=== PATIENT | male | born 1950 | race Caucasian/White ===

== ENCOUNTER 2016-10-01 11:50 | Inpatient (IN) | payer OTHER ==
[~2016-10-01] VITALS: Ht 175.3 cm; Wt 81.4 kg
--- NOTE | ~2016-10-01 | EEG ---
[facility] Xiomara [place] [employer] [address] ELECTROENCEPHALOGRAM Name: MARLEN HUBBARD Room #: 403-P [facility] IN M.R.#: [id number] Admission: 10/01/16 Attend Phys: Nely Rodrigues MD Discharge: 10/03/16 Date of : 52 Report #: [id number] THIS REPORT FOR: //name// CC: Daniel Rodrigues DATE OF SERVICE: 10/02/2016 This patient is being evaluated for new onset seizure. EEG was done by placing the electrodes by standard 10-20 system of electrode placement. Both referential and sequential montages were used for recording. Background activity in this patient's EEG is about 9 Hz and 30 microvolts. The patient became drowsy and that is associated with bilaterally symmetrical sleep spindle and vertex sharp waves. Photic stimulation is unremarkable. Throughout the record, no active epileptiform activity was noticed. IMPRESSION: This patient's EEG is within normal limits. Thank you very much for this referral. <ELECTRONICALLY SIGNED> By: Jericho Fernandes MD 10/06/162053 52 21 Jericho Fernandes MD /nt
--- NOTE | ~2016-10-01 | D ---
[facility] [place] [address] DISCHARGE SUMMARY Name: MARLEN HUBBARD Room #: 403-P [facility] IN M.R.#: [id number] Admission: 10/01/16 Attend Phys: Nely Rodrigues MD Discharge: Date of : 51 Report #: [id number] THIS REPORT FOR: //name// CC: Daniel Rodrigues DATE OF SERVICE: 10/03/2016 FINAL DIAGNOSES: 1. Seizure. 2. Multiple sclerosis. 3. Neurogenic bladder 4. Diabetes type 2. HOSPITAL COURSE: [facility] with [facility] status, the Neurology service felt this represented seizure, he was placed on Keppra. He had no other episodes during his stay. Other home medications were continued. He was completing antibiotics for last hospitalization regarding urinary tract infection due to chronic suprapubic catheter. This was not new and was just a continuation of treatment. He had a normal EEG. MRI of the cervical spine revealed syringomyelia, which is chronic and an MRI of the brain revealed white bilateral plaques consistent with his previous diagnosis of MS. No other new plans were made at this time. PHYSICAL EXAMINATION: GENERAL: On the day of discharge, he was awake and alert, in no distress. VITAL SIGNS: Temperature 36.7, pulse 103, respirations 18, blood pressure 157/83. LUNGS: Clear. HEART: Regular. ABDOMEN: Soft. EXTREMITIES: Showed no edema. DISPOSITION: To be returned to [facility]. Activity as tolerated. PT and OT. I will follow his stay there. Medications have been signed and ordered. Tramadol is to be discontinued. <ELECTRONICALLY SIGNED> By: Daniel Jiménez MD 10/03/16 1301 1003 1016 Daniel Jiménez MD /nt
--- NOTE | ~2016-10-01 | EKG ---
[facility] [employer] [place] [address] ELECTROCARDIOGRAM REPORT Name: MARLEN HUBBARD [id number] Admission: 10/01/16 Attend Phys: Discharge: Date of : 52 Report #: [id number] THIS REPORT FOR: //name// [facility] ED Test Date: 2016-10-01 Test Time: 12:14:19 Pat Name: MARLEN HUBBARD Department: Room: Gender: M Manager Applied: FRANK : 1950 Requested By: Debi Noland Order Number: [id number] MD: Benjamin Tomlin Measurements Intervals [place] Rate: 92 P: 47 [place]: 106 QRS: 38 QRSD: 60 T: 51 QT: 401 QTc: 497 Interpretive Statements Sinus rhythm Short LA interval Abnormal R-wave progression, early transition Nonspecific ST and T wave abnormality Compared to ECG 09/19/2016 16:52:00 QT interval has lengthened Electronically Signed On 10-01-2016 14:40:06 REAL ESTATE LOAN PROCESSOR by Benjamin Tomlin [email or web address] <ELECTRONICALLY SIGNED> By: Benjamin Tomlin MD, [facility] 10/01/16 1440 D: [id number] 13 Benjamin Tomlin MD, [facility] /EPI
--- NOTE | ~2016-10-01 | H ---
[facility] [place] [address] HISTORY AND PHYSICAL Name: MARLEN HUBBARD Rusty Room #: 403-P [facility] IN M.R.#: [id number] Admission: 10/01/16 Attend Phys: Nely Rodrigues MD Discharge: 10/03/16 Date of : 52 Report #: [id number] THIS REPORT FOR: //name// CC: Daniel Rodrigues DATE OF SERVICE: 10/01/2016 CHIEF COMPLAINT: Altered mental status. HISTORY OF PRESENT ILLNESS: This patient is a 66-year-old gentleman with multiple medical problems who was sent back to the ER from [facility] for a change in responsiveness. He was apparently on the phone with his daughter when he became unresponsive. Nursing staff found him just kind of leaning over on his wheelchair. He had stable vital signs, but did not come to and his daughter requested that he be sent to the ER. According to EMS reports, he was answering question and appropriately and his blood sugar on arrival was 182. PAST MEDICAL HISTORY: Multiple sclerosis, syringomyelia, depression, dyslipidemia, diabetes type 2, hypertension, neurogenic bladder with a suprapubic catheter, incomplete paraplegia. FAMILY HISTORY: Noncontributory. SOCIAL HISTORY: He has been recuperating at alf after recent UTI. ALLERGIES: PER HIS LIST. MEDICATIONS: Please see the electronic notes. REVIEW OF SYSTEMS: He is denying headache, chest pain, shortness of breath, abdominal pain, nausea, vomiting, diarrhea, constipation, dysuria, or syncope. OBJECTIVE: VITAL SIGNS: Please see vital signs per nursing on 10/02/2016. GENERAL: He was awake and alert and recognized me. LUNGS: Clear. HEART: Regular. ABDOMEN: Soft, normoactive bowel sounds. EXTREMITIES: No edema. ASSESSMENT: 1. Possible procedure. 2. Diabetes type 2. 3. Multiple sclerosis. [facility] [address] [place] [address] HISTORY AND PHYSICAL Name: MARLEN HUBBARD Room #: 403-P [facility] IN M.R.#: [id number] Admission: 10/01/16 Attend Phys: Nely Rodrigues MD Discharge: 10/03/16 Date of : 52 Report #: [id number] Working diagnosis now is seizure. He has been treated as such overnight. The Neurology service will follow him and await their findings. Other home medications to continue. <ELECTRONICALLY SIGNED> By: Daniel Jiménez MD 10/16/16 0945 1517 1544 Daniel Jiménez MD /nt
[2016-10-01 11:50] VITALS: BP 183/68
[~2016-10-01 11:50] MED LIST: ACETAMINOPHEN325 M1 PO; AMOXICILLIN 50500 MG PO; ATORVASTATIN CA40 MG PO; BACTRIM DS TAB1 EACH PO; BISAC-EVAC10 MG RECTAL; CIPRO500 MG PO; CLONAZEPAM; COLACE100 MG PO; ENOXAPARIN40 MG/0.1 SUBQ; FLUCONAZOLE 10100 MG PO; GLIMEPIRIDE1 MG PO; GLUCOSE4 GM PO; HYDROCODON-ACE1 EAC5 PO; HYDROCODONE-AP1 EA11; ICY HOT1 EAC1 TP; IRON325 PO; KEFLEX500 MG PO; KLONOPIN1 MG PO; LANTUS SUBQ; LIDODERM 5%1 PATC1 TRANSDERM; LINZESS290 MCG PO; LIORESAL 10 MG10 MG PO; LIPITOR; LISINOPRIL; LISINOPRIL10 MG PO; METFORMIN; MIRALAX17 GM PO; NEURONTIN 300300 M1; NEURONTIN 300300 M1 PO; NORCO 7.5-3251 EACH PO; NOVOLOG100 UNIT/1 SUBQ; PIOGLITAZONE15 MG PO; POTASSIUM20 PO; PROTONIX40 M1 PO; ZOLOFT100 MG PO
[2016-10-01 12:22] LABS: HEMATOCRIT 31.6 % (42.0-52.0); HEMOGLOBIN 10.6 gm/dL (14.0-18.0); MCH 29.1 pg (26.0-34.0); MCHC 33.4 % (28.0-37.0); MCV 87.3 fL (80.0-100.0); PLATELET COUNT 463 thou/uL (150-400); RBC 3.62 mil/uL (4.50-6.00); RDW 16.4 % (10.5-14.5)
[2016-10-01 12:32] LABS: MANUAL DIFF YES
[2016-10-01] MEDS ORDERED: ZOLOFT50 MG PO (12:33)
[2016-10-01 12:39] LABS: CALCIUM 8.6 mg/dL (8.5-10.1); CREATININE 1.4 mg/dL (0.6-1.3); POTASSIUM 3.8 mmol/L (3.5-5.1)
[2016-10-01 12:45] LABS: URINE BLOOD 2+ (Negative); URINE COLOR YELLOW; URINE GLUCOSE-RANDOM* NEGATIVE (Negative); URINE KETONES NEGATIVE (Negative); URINE NITRITE NEGATIVE (Negative); URINE PROTEIN (DIPSTICK) NEGATIVE (Negative); URINE SPECIFIC GRAVITY >= 1.030 (1.003-1.035); URINE UROBILINOGEN 0.2 E.U./dl (0.2-1.0)
[2016-10-01 12:48] LABS: URINE BILIRUBIN NEGATIVE (Negative)
[2016-10-01 12:49] LABS: SQUAMOUS None Seen /LPF (0-3)
[2016-10-01 12:50] LABS: BACTERIA 1-9 Few /HPF (None Seen); CASTS None Seen /LPF (None Seen); CRYSTALS None Seen /LPF (None Seen); URINE RBC 3-10 Few /HPF (0-2); YEAST Present (None Seen)
[2016-10-01] MEDS ORDERED: KEPPRA 500 MG500 M1 PO (13:04)
[2016-10-01 13:09] LABS: TOTAL CELL COUNT 100
[2016-10-01 16:45] VITALS: BP 103/55
[2016-10-01 17:00] VITALS: BP 139/80
[2016-10-01 20:00] VITALS: BP 138/69
[2016-10-02 03:00] VITALS: BP 121/77
[2016-10-02 05:25] LABS: HEMATOCRIT 27.2 % (42.0-52.0); MCH 28.9 pg (26.0-34.0); MCHC 33.1 % (28.0-37.0); MCV 87.4 fL (80.0-100.0); RBC 3.11 mil/uL (4.50-6.00); RDW 16.9 % (10.5-14.5); WBC 5.9 thou/uL (4.0-11.0)
[2016-10-02 05:48] LABS: CALCIUM 8.3 mg/dL (8.5-10.1); CREATININE 1.2 mg/dL (0.6-1.3); POTASSIUM 3.8 mmol/L (3.5-5.1)
[2016-10-02 08:00] VITALS: BP 158/87
[2016-10-02 16:00] VITALS: BP 130/73
[2016-10-02 20:00] VITALS: BP 126/52
[2016-10-03 04:00] VITALS: BP 163/73
[2016-10-03 06:19] LABS: HEMATOCRIT 28.3 % (42.0-52.0); HEMOGLOBIN 9.4 gm/dL (14.0-18.0); MCH 28.9 pg (26.0-34.0); MCHC 33.1 % (28.0-37.0); MCV 87.6 fL (80.0-100.0); RBC 3.24 mil/uL (4.50-6.00); RDW 17.1 % (10.5-14.5); WBC 7.6 thou/uL (4.0-11.0)
[2016-10-03 06:44] LABS: CALCIUM 8.4 mg/dL (8.5-10.1); CREATININE 1.2 mg/dL (0.6-1.3); POTASSIUM 4.4 mmol/L (3.5-5.1)
[2016-10-03 08:00] VITALS: BP 157/83
[2016-10-03] MEDS ORDERED: BACTRIM DS TAB1 EACH PO (09:58)
[2016-10-03] MEDS ORDERED: FLUCONAZOLE 10100 MG PO (09:58)
[2016-10-03] MEDS ORDERED: KEPPRA 500 MG500 M1 PO (10:00)
[2016-10-03] MEDS ORDERED: COREG3.125 MG PO (10:06)
[2016-10-25] MEDS ORDERED: VALTREX1000 MG PO (15:34)
[2016-11-01] MEDS ORDERED: CARVEDILOL25 MG PO (12:52)
[2016-11-01] MEDS ORDERED: VALTREX 500 MG500 MG PO (12:52)
[2016-11-01] MEDS ORDERED: NEURONTIN 300300 M1 PO (12:53)
[2016-11-01] MEDS ORDERED: VITAMIN D2000 UNIT PO (12:54)
== END 2016-10-03 14:31 | DRG 101 ==
LOC: ER 11:50 → EROBS 14:56 → 4N 14:56
PROVIDERS: Emergency Medicine; Internal Medicine Geriatric Medicine
DX: G40.909 Epilepsy, unspecified, not intractable, without status epilepticus (principal); G95.0 Syringomyelia and syringobulbia; E11.9 Type 2 diabetes mellitus without complications; G35 Multiple sclerosis; F32.9 Major depressive disorder, single episode, unspecified; E78.5 Hyperlipidemia, unspecified; N31.9 Neuromuscular dysfunction of bladder, unspecified; Z87.898 Personal history of other specified conditions; Z87.81 Personal history of (healed) traumatic fracture; Z79.899 Other long term (current) drug therapy; Z23 Encounter for immunization
CPT/HCPCS: 10091

== ENCOUNTER 2017-09-17 14:52 | Inpatient (IN) | payer OTHER ==
[~2017-09-17] VITALS: Ht 175.3 cm; Wt 102.2 kg
--- NOTE | ~2017-09-17 | D ---
[facility] [place] [address] DISCHARGE SUMMARY Name: MARLEN HUBBARD Rusty Room #: 428-P [facility] IN ..#: [id number] Admission: 09/17/17 Attend Phys: Daniel Jiménez MD Discharge: 10/02/17 Date of : 51 Report #: [id number] THIS REPORT FOR: //name// CC: Daniel Jiménez FINAL DIAGNOSES: 1. Acute cholecystitis. 2. Acute cystitis. 3. Altered mental status due to the above. 4. Multiple sclerosis. 5. Diabetes type 2. 6. Acute kidney injury on chronic kidney disease stage 2. 7. Hypertension. 8. Gastritis. : 1. CT abdomen. 2. EGD. 3. Lap dustin. HOSPITAL COURSE: The patient was admitted with altered mental status. Initial diagnosis was cystitis related to chronic suprapubic catheter with organisms growing. He was treated with antibiotics accordingly. However, he continued to complain of abdominal pain with nausea and vomiting. Additional studies were obtained, which showed cholecystitis. EGD was performed showing gastritis, but no ulcer. He refused a colonoscopy. Ultimately, Dr. Rudd took him for a lap dustin. Please see that dictated report. Pathology confirmed acute on chronic cholecystitis. Blood sugars were managed with insulin adjustments and blood pressure was managed with medication adjustments. He was very slow to participate with therapy and spent most of the time asleep in bed. He had no other interval complication. Creatinine stabilized around 1.4 to 1.5. PHYSICAL EXAMINATION ON THE DAY OF DISCHARGE: GENERAL: He was awake, resting in bed, really not eating much. VITAL SIGNS: Blood pressures were 150s/70s. Glucose was in the 120s to 250s. LUNGS: Clear. HEART: Regular. ABDOMEN: Soft, normoactive bowel sounds. A Suprapubic catheter in place. EXTREMITIES: 1+ edema. DISPOSITION: He is being transferred to [facility] nursing unit with diabetic diet, activity as tolerated, PT, and OT. I will follow his stay [facility] [address] [place] [address] DISCHARGE SUMMARY Name: STEVIEMARLEN Room #: [facility] [id number] Admission: 09/17/17 Attend Phys: Daniel Jiménez MD Discharge: 10/02/17 Date of : 51 Report #: [id number] there. I have signed all his transfer medication orders. Follow up lab data in 2 days. <ELECTRONICALLY SIGNED> By: Daniel Jiménez MD 10/04/17 0831 0936 1019 Daniel Jiménez MD /nt
--- NOTE | ~2017-09-17 | S ---
[facility] [employer] [place] [address] SURGICAL PATH RPT PROCEDURE Name: CLAY MAZARIEGOS Room #: 428-P ADM IN M.R.#: [id number] Admission: 09/17/17 Date of : 52 Discharge: Report #: [id number] Path Case #: [id number] PATHOLOGY REPORT COLLECTION DATE: 09/27/2017 RECEIVED DATE: 09/28/2017 SUBMITTING PHYS: Dr. Steven Rudd OTHER PHYS: Dr. Daniel Jiménez SPECIMEN(S) RECEIVED: A.Gallbladder * * * * * * * * * * * * FINAL DIAGNOSIS: "Gallbladder," cholecystectomy: - Mildly acute on chronic cholecystitis. (CLW:mgr; 10/01/2017) PATHOLOGIST: Rosette Mccrary M.D. REPORT ELECTRONICALLY SIGNED BY: Rosette Mccrary M.D. DATE/TIME: 10/01/2017 17:02 * * * * * * * * * * * * GROSS PATHOLOGY: Received in formalin labeled "Clay Mazariegos, gallbladder" and consists of a previously opened gallbladder that measures 7 cm in length by 3 cm in diameter. The serosa is glistening and green. The margin is inked. The wall measures 0.3 cm in maximum thickness. The mucosa is velvety and green. There are no calculi present within the specimen container. Tank Truck Engine Mechanic sections are submitted as A1. (PIETER; 09/28/2017) CLINICAL HISTORY: Cholecystitis INITIAL CPT CODE(S): A; 29764 Professional services performed by [facility] at [facility] [address] [place] [address] Technical services performed by [facility] at [address] [place] [address], [facility] [address], [place] [address]. [facility] [address] [place] [address] SURGICAL PATH RPT PROCEDURE Name: CLAY MAZARIEGOS Room #: 428-P ADM IN M.R.#: [id number] Admission: 09/17/17 Date of : 52 Discharge: Report #: [id number] Path Case #: [id number] [facility] [address] [place] [id number] PHONE: [phone] DIRECTOR: Benedict Wren M.D. * * * END OF REPORT * * *
--- NOTE | ~2017-09-17 | EKG ---
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
--- NOTE | ~2017-09-17 | HC ---
[facility] [place] [address] CONSULTATION Name: MARLEN HUBBARD Room #: 428-P [facility] IN ..#: [id number] Admission: 09/17/17 Attend Phys: Daniel Jiménez MD Discharge: Date of : 51 Report #: [id number] THIS REPORT FOR: //name// CC: Daniel Jiménez DATE OF SERVICE: 09/23/2017 REASON FOR CONSULTATION: Abdominal pain and nausea. The patient with functional disability, suprapubic catheter, recurrent urinary tract infection, admitted with altered mental status here. HISTORY OF PRESENT ILLNESS: The patient is a 67-year-old who does have a lot of medical issues. stated above and also includes diabetes. The patient has been complaining of nausea, abdominal pain for 6 days. This happened around . He was noted to have nausea and altered mental status on . He had a urinary tract infection, which has been recurrent. This grew out Klebsiella and Proteus. Since hospitalization, he has had persistent nausea and he is having pain in the right side. He points to the right lower abdomen. He did have a CT scan on admission and it showed a gallbladder with sludge. No gallbladder inflammation. Appendix is normal, colon has constipation appearance, but no inflammation. Has a hiatal hernia. His liver functions are normal. The patient had an ultrasound yesterday because Dr. Ortiz was concerned that the gallbladder may be an issue. Ultrasound does show stones. They are pretty small. I think they are kind of hard to characterize, could be sludge. There is some echogenic material present. Since this was present on his CT when he came in. I do not think this is due to the current illness, and not just due to n.p.o. I think that this is likely pathological. He has never had any trouble with eating in the past. He eats everything. No postprandial pains that he complains of. PHYSICAL EXAMINATION: GENERAL: The patient is bedridden, has a suprapubic catheter. ABDOMEN: Slightly obese. He does have sensation present. He seems to be tender on the right side is hard to tell if it is more in the upper abdomen versus the lower abdomen on the right. I think he guards more on the upper abdomen. No rigidity or rebound. No ascites. IMPRESSION: The patient is a 67-year-old with abdominal pain and nausea. The pain is on the right side. I suspect that it is gallbladder disease, but it is not acute. The patient does have a lot of medical issues. It is difficult to be sure that the gallbladder is the disease is the offending organ. Dr. Larios impregnator electrolytic capacitors was on the unit, I will go ahead and ask him to see the patient for consultation and see if an EGD would be helpful. I recommend a PIPIDA scan with Kinevac injection. The patient is requiring more pain medication and wants to have IV morphine. I discussed the case with the family. [address] [address] CONSULTATION Name: STEVIEMARLEN Room #: 428-P [facility] IN M.R.#: [id number] Admission: 09/17/17 Attend Phys: Daniel Jiménez MD Discharge: Date of : 51 Report #: [id number] His daughter Solange and ex- were on the phone with listening. They agree with my impression. <ELECTRONICALLY SIGNED> By: Steven Rudd MD 09/24/17 1134 1124 0330 Steven Rudd MD /nt
--- NOTE | ~2017-09-17 | H ---
[facility] [place] [address] HISTORY AND PHYSICAL Name: MARLEN HUBBARD Room #: 428-P [facility] IN ..#: [id number] Admission: 09/17/17 Attend Phys: Daniel Jiménez MD Discharge: Date of : 51 Report #: [id number] THIS REPORT FOR: //name// CC: Daniel Jiménez DATE OF SERVICE: 09/17/2017 CHIEF COMPLAINT: Weakness and confusion. HISTORY OF PRESENT ILLNESS: The patient is a 67-year-old gentleman with multiple medical problems who was brought to the ER by his family with confusion and weakness. They were visiting him and noted altered mental status and called for an ambulance. They said in the past he has had urinary tract infections and sepsis, they have caused similar symptoms. His caregivers reported that in recent days, he was "erratic all day," but history is very limited. I spoke to Dr. Noland the emergency room at the time of his presentation. PAST MEDICAL HISTORY: Multiple sclerosis, diabetes type 2, syringomyelia with functional paraplegia, neurogenic bladder with suprapubic catheter, he has had history of admission for sepsis related to cellulitis and UTI in the past, hypertension, and he has had bilateral distal femur fractures in the past. PAST SURGICAL HISTORY: Unknown. FAMILY HISTORY: Noncontributory. SOCIAL HISTORY: He lives alone. He does have some paid caregivers. There is reported alcohol use in the past, but it is unclear currently. No known tobacco use. ALLERGIES: None. MEDICATIONS: Coreg 25 mg twice a day, vitamin D, Tylenol, lisinopril 10 mg, gabapentin, NovoLog 5 units with meals, Zoloft 150 mg a day, gabapentin 600 mg t.i.d., Levemir 45 units at bedtime, baclofen 10 mg t.i.d., and Colace. REVIEW OF SYSTEMS: He complains of nausea. He has a nonproductive cough. Denies headache, chest pain, shortness of breath, abdominal pain, dysuria, myalgias, arthralgias, syncope, or fall. OBJECTIVE: VITAL SIGNS: Temperature 37.3, pulse 104, respirations 20, blood pressure 191/80, and O2 sat 96% on room air. GENERAL: He is awake and alert, lying in bed. HEAD AND NECK: Unremarkable. LUNGS: Clear. [address] [address] HISTORY AND PHYSICAL Name: MARLEN HUBBARD Room #: 428-P [facility] IN M.R.#: [id number] Admission: 09/17/17 Attend Phys: Daniel Jiménez MD Discharge: Date of : 51 Report #: [id number] HEART: Regular. ABDOMEN: Soft, distended, hypoactive bowel sounds. No rebound or guarding. EXTREMITIES: No cyanosis, clubbing, or edema. NEUROLOGIC: He has rigid contractures of the legs at the knees and hips. LAB DATA: Reviewed. ASSESSMENT: 1. Altered mental status. 2. Nausea and vomiting. 3. Diabetes type 2. 4. Hypertension. 5. Multiple sclerosis. 6. Paraplegia. 7. Neurogenic bladder. 8. Chronic suprapubic catheter. PLAN: I have asked for additional x-rays and for now, continue clear liquids with IV fluid support. His prerenal status with elevated creatinine is related to poor oral intake as it is improved overnight with IV fluids. Empiric antibiotics based on signs of cystitis, although this is likely chronic colonized catheter. Supportive measures in place. <ELECTRONICALLY SIGNED> By: Daniel Jiménez MD 09/18/17 1229 0841 0903 Daniel Jiménez MD /nt
--- NOTE | ~2017-09-17 | EKG ---
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
--- NOTE | ~2017-09-17 | O ---
[facility] [place] [address] OPERATIVE REPORT Name: MARLNE HUBBARD Rusty Room #: 428-P [facility] IN M.R.#: [id number] Admission: 09/17/17 Attend Phys: Daniel Jiménez MD Discharge: 10/02/17 Date of : 51 Report #: [id number] THIS REPORT FOR: //name// CC: Sammy Jiménez MD PREOPERATIVE DIAGNOSIS: Cholecystitis with cholelithiasis, consistent with small stones or sludge. POSTOPERATIVE DIAGNOSIS: Cholecystitis with cholelithiasis, consistent with small stones or sludge. PROCEDURES PERFORMED: Laparoscopic cholecystectomy with cholangiogram. ANESTHESIA: General anesthesia. COMPLICATIONS: None. ESTIMATED BLOOD LOSS: 5 mL. SURGEON: Steven Rudd M.D. DESCRIPTION OF PROCEDURE: With the patient under general anesthesia, abdomen was prepped and draped in sterile fashion. Timeout was performed. The patient did receive 2 grams of Ancef preop. Incision was made just above the umbilicus. The fascia was identified and grasped with hemostat. Fascia was then opened under visualization, 0 Vicryl suture placed on the fascia for retraction. Veress needle was then placed through the peritoneum. Abdominal cavity was insufflated with CO2. After creating pneumoperitoneum pressure of 15, an 11 mm trocar was placed through the fascia defect through the peritoneum into the abdominal cavity. No harm to underlying tissue. The patient has had back issue. The patient's body position was limited. The exposure was good. Two 5 mm trocars were placed in right upper quadrant, a 5 mm trocar was placed in right epigastrium. The patient was placed on the right side up and head up. The gallbladder was identified. The gallbladder did look distended and somewhat edematous. There is a small amount of free fluid sandi-hepatically. It does look like the gallbladder was irritated. There is some chronic adhesion proximally also. The adhesions were taken down. The proximal gallbladder was actually covered by the fatty adhesions. This was dissected free. The cystic duct area was then identified. There is a small branch artery over the cystic duct. This was isolated, clipped x 2 proximally, 1 distally and then divided. Cystic duct was then visualized. The cystic duct is actually a fairly small size. A clip was placed in junction of cystic duct to the gallbladder. An opening was made in the cystic duct. Cholangiogram catheter was placed because of small size. I could only get the tip of the catheter in and this was held with a clip. Fluoroscopic cholangiogram was obtained. Common bile duct did [facility] [address] [place] [address] OPERATIVE REPORT Name: STEVIEMARLEN Room #: 428-P [facility] IN M.R.#: [id number] Admission: 09/17/17 Attend Phys: Daniel Jiménez MD Discharge: 10/02/17 Date of : 51 Report #: [id number] fill out well. Initially, the distal duct filled out. I did not see anything in terms of filling defect and dye flowed readily into the duodenum. After further injection, I was able to see the proximal duct filled out. The cholangiogram catheter identified the cystic duct. There is some dye extravasation at the cannulation site since I could not get a very good seal around it. At this point, the cholangiogram was completed. Catheter was removed. The proximal cystic duct was clipped x 2 and then divided. Further along the liver, the main artery was found. This was clipped x 2 proximally, 1 distally and then divided. The artery can be traced up into the gallbladder. Up on the liver bed, there is a vein that was also clipped and divided. Gallbladder was free from the liver bed without difficulty. Gallbladder was placed in specimen bag, retrieved through the infraumbilical port. The bile was fairly sludgy and also had a cholesterol material floating in the bile. This is more consistent with cholesterol debris and sludge. Liver bed was checked, hemostasis obtained and excellent. Irrigation was aspirated out. CO2 was evacuated as much as possible. Trocars removed. The fascia defect above the umbilicus was closed with [id number] 0 Vicryl x 2 and single interrupted 0 Vicryl in the fascia. Skin was irrigated. Skin was closed with 5-0 PDS. Steri-Strips were applied. Band-Aid used for dressing. The patient tolerated procedure well. <ELECTRONICALLY SIGNED> By: Steven Rudd MD 10/24/17 1513 1722 180 Steven Rudd MD /nt
--- NOTE | ~2017-09-17 | HC ---
[facility] [address] CONSULTATION Name: MARLEN HUBBARD Room #: 428-P [facility] IN ..#: [id number] Admission: 09/17/17 Attend Phys: Daniel Jiménez MD Discharge: Date of : 52 Report #: [id number] THIS REPORT FOR: //name// CC: Daniel Jiménez REASON FOR CONSULTATION: New onset atrial fibrillation. HISTORY OF PRESENT ILLNESS: The patient is a 67-year-old with history of multiple sclerosis, hyperlipidemia and diabetes, admitted on the with altered mental status. Initially diagnosed with possible urinary tract infection as he has a suprapubic catheter, also had some acute renal failure and then eventually was diagnosed with cholecystitis and underwent cholecystectomy. It does not sound like this was full-blown cholecystitis, but there was thought to be pain related to the gallbladder. Therefore, it was removed. He has also undergone an EGD and has been here for optimization of his medical issues. Today at around 1:30, the patient went into rapid atrial fibrillation with rates in the 170s. He denies any chest pain or chest tightness. He denies any shortness of breath. He denies PND or orthopnea. He denies presyncope or syncope. REVIEW OF SYSTEMS: GENERAL: No fevers or chills. HEENT: No blurred vision. CARDIOVASCULAR: As above. PULMONARY: No productive cough. GASTROINTESTINAL: No nausea, no further abdominal pain. GENITOURINARY: No dysuria. MUSCULOSKELETAL: No myalgias or arthralgias. ENDOCRINE: No heat or cold intolerance. NEUROLOGIC: He has chronic lower extremity weakness due to his multiple sclerosis and some spinal cord issues. PAST MEDICAL HISTORY: As above. SOCIAL HISTORY: Does not smoke. FAMILY HISTORY: Noncontributory. ALLERGIES: None. HOME MEDICATIONS: Include insulin, melatonin, nystatin, sertraline, gabapentin, baclofen, Colace. His meds here have been reviewed. PHYSICAL EXAMINATION: VITAL SIGNS: Temperature 36.1, pulse 170s, respiration 20, blood pressure is 130s/70s, sats 90%-95%. HEENT: Oropharynx is clear. [facility] [address] [place] [address] CONSULTATION Name: MARLEN HUBBARD Room #: 428-P [facility] IN ..#: [id number] Admission: 09/17/17 Attend Phys: Daniel Jiménez MD Discharge: Date of : 51 Report #: [id number] NECK: Supple, with no thyromegaly. HEART: Tachycardic and irregular. There is no elevated jugular venous pressure. LUNGS: Clear to auscultation bilaterally. ABDOMEN: Soft, nontender, nondistended. EXTREMITIES: There is some trace lower extremity edema and his pulses are 1-2+. NEUROLOGICAL: Cranial nerves are intact. LABORATORY DATA: White count is 7, hemoglobin 9, platelets 247. Blood gas: 7.3, pCO2 32, pO2 70. Chemistries from yesterday revealed potassium 3.3, BUN 11, creatinine 1.4, glucose 168. Telemetry shows the atrial fibrillation. Troponins and EKG are pending. ASSESSMENT: 1. New onset atrial fibrillation with rapid ventricular response. 2. Multiple sclerosis. 3. Hyperlipidemia. 4. Diabetes mellitus. 5. Cholecystitis. PLAN: In summary, the patient is a 67-year-old with new onset AFib. We will initiate IV amiodarone and gave a few doses of IV digoxin. We will attempt to get his rates controlled in the CCU. We will obtain an echocardiogram in the morning. We will obtain a troponin now and in the a.m. <ELECTRONICALLY SIGNED> By: Efren Stout MD 10/01/17 1307 1356 2218 Efren Stout MD /nt
--- NOTE | ~2017-09-17 | S ---
[facility] [place] [address] SURGICAL PATH RPT PROCEDURE Name: CLAY MAZARIEGOS Rusty Room #: 428-P ADM IN M.R.#: [id number] Admission: 09/17/17 Date of : 52 Discharge: Report #: [id number] Path Case #: [id number] PATHOLOGY REPORT COLLECTION DATE: 09/25/2017 RECEIVED DATE: 09/25/2017 SUBMITTING PHYS: Dr. Geoffrey Larios OTHER PHYS: Dr. Daniel Jiménez SPECIMEN(S) RECEIVED: A.Bx of small bowel for Celiac B.Bx of antrum for H. pylori * * * * * * * * * * * * FINAL DIAGNOSIS: A. Bx of small bowel for Celiac: - Unremarkable small bowel mucosa with intact villous architecture and no increase in intraepithelial lymphocytes. B. Bx of antrum for H. pylori: - Mild chronic inactive gastritis with reactive change. - An H. pylori immunostain is negative (Block B1; appropriately reactive control). PATHOLOGIST: Sudarshan Carter M.D. REPORT ELECTRONICALLY SIGNED BY: Sudarshan Carter M.D. DATE/TIME: 09/26/2017 11:13 * * * * * * * * * * * * GROSS PATHOLOGY: A. Received in formalin labeled "Clay Mazariegos, BX of small bowel for celiac," are 2 segments of mendez soft tissue measuring 0.7 x 0.2 x 0.2 cm in aggregate dimensions and ranging from 0.3 to 0.4 cm in maximum dimension. The specimen is submitted entirely in cassette A1. B. Received in formalin labeled "Clay Mazariegos, BX antrum for H. pylori," are 2 segments of mendez soft tissue measuring 0.8 x 0.3 x 0.2 cm in aggregate dimensions and ranging from 0.3 to 0.5 cm in maximum dimension. The specimen is submitted entirely in cassette B1. (TSD; 09/25/2017) CLINICAL HISTORY: Pre-OP DX: Abdominal pain Post-OP DX: Gastritis, esophagitis INITIAL CPT CODE(S): A; [address] [address] SURGICAL PATH RPT PROCEDURE Name: CLAY MAZARIEGOS Room #: 428-P [facility] IN M.R.#: [id number] Admission: 09/17/17 Date of : 52 Discharge: Report #: [id number] Path Case #: [id number]; [id number], [id number] Professional services performed by [facility] at [address], [place] [address] Technical services performed by [facility] at [address] [place] [address], [facility] [address] [address]. [facility] [address] [address] PHONE: [phone] DIRECTOR: Benedict Wren M.D. * * * END OF REPORT * * *
[~2017-09-17 14:52] MED LIST changes: +CARVEDILOL25 MG PO; +COREG3.125 MG PO; +KEPPRA 500 MG500 M1 PO; +VALTREX 500 MG500 MG PO; +VALTREX1000 MG PO; +VITAMIN D2000 UNIT PO; +ZOLOFT50 MG PO
[2017-09-17 14:53] VITALS: BP 178/81
[2017-09-17 15:18] LABS: URINE BILIRUBIN NEGATIVE (Negative); URINE BLOOD 1+ (Negative); URINE CLARITY SL CLOUDY; URINE COLOR YELLOW; URINE GLUCOSE-RANDOM* NEGATIVE (Negative); URINE KETONES NEGATIVE (Negative); URINE LEUKOCYTES 3+ (Negative); URINE NITRITE POSITIVE (Negative); URINE PROTEIN (DIPSTICK) NEGATIVE (Negative); URINE SPECIFIC GRAVITY 1.015 (1.005-1.035); URINE UROBILINOGEN 0.2 E.U./dl (0.2-1.0)
[2017-09-17 15:20] LABS: HEMATOCRIT 37.6 % (42.0-52.0); MCH 24.5 pg (26.0-34.0); MCV 76.6 fL (80.0-100.0); PLATELET COUNT 310 thou/uL (150-400); RBC 4.91 mil/uL (4.50-6.00); RDW 18.4 % (10.5-14.5); WBC 5.3 thou/uL (4.0-11.0)
[2017-09-17 15:24] LABS: TRIPLE PHOSPHATE CRYSTALS 4-10 Moderate /LPF (None Seen)
[2017-09-17 15:25] LABS: BACTERIA >30 Many /HPF (None Seen); SQUAMOUS 0-3 Few /LPF (0-3); URINE RBC 3-10 Few /HPF (0-2); URINE WBC >25 Many /HPF (0-5)
[2017-09-17 15:26] LABS: ANION GAP 5 mmol/L (7-16); BUN 25 mg/dL (7-18); CALCIUM 9.3 mg/dL (8.5-10.1); CASTS None Seen /LPF (None Seen); CHLORIDE 108 mmol/L (98-107); CO2 30 mmol/L (21-32); CREATININE 1.7 mg/dL (0.7-1.3); GLUCOSE 180 mg/dL (74-106); POTASSIUM 5.2 mmol/L (3.5-5.1); SODIUM 143 mmol/L (136-145)
[2017-09-17 15:32] LABS: ALBUMIN 3.2 g/dL (3.4-5.0); DIRECT BILIRUBIN < 0.1 mg/dL (<0.1-0.3); LIPASE 50 U/L (73-393); SGOT 17 U/L (15-37); SGPT 21 U/L (30-65); TOTAL BILIRUBIN 0.2 mg/dL (<0.1-1.0); TOTAL PROTEIN 7.3 g/dL (6.4-8.2)
[2017-09-17 15:52] LABS: ABSOLUTE NEUTROPHILS 3.4 thou/uL (1.4-8.2)
[2017-09-17 15:53] LABS: ANISOCYTOSIS 1+; POIKILOCYTOSIS SLIGHT; POLYCHROMASIA OCCASIONAL
[2017-09-17] MEDS ORDERED: NYATA15 GM TOP (16:55)
[2017-09-17] MEDS ORDERED: MELATONIN5 M1 PO (16:55)
[2017-09-17] MEDS ORDERED: SERTRALINE HCL50 MG PO (16:56)
[2017-09-17] MEDS ORDERED: SENNA-S TABLET1 EACH PO (16:56)
[2017-09-17] MEDS ORDERED: TRIAMCINOLONE A80 G2 TOP (16:57)
[2017-09-17] MEDS ORDERED: NEURONTIN 300300 M1 PO (16:57)
[2017-09-17] MEDS ORDERED: LEVEMIR SUBQ (16:58)
[2017-09-17] MEDS ORDERED: COLACE100 MG PO (16:58)
[2017-09-17] MEDS ORDERED: TYLENOL EXTRA500 MG PO (16:58)
[2017-09-17] MEDS ORDERED: LIORESAL 10 MG10 MG PO (16:58)
[2017-09-17] MEDS ORDERED: FLEET ENEMA133 ML RECTAL (16:59)
[2017-09-17 17:21] VITALS: BP 178/81
[2017-09-17 17:40] VITALS: BP 134/61
[2017-09-18 04:16] VITALS: BP 184/122
[2017-09-18 05:51] VITALS: BP 191/80
[2017-09-18 07:52] LABS: HEMATOCRIT 38.3 % (42.0-52.0); MCH 23.9 pg (26.0-34.0); MCHC 31.3 g/dL (28.0-37.0); MCV 76.4 fL (80.0-100.0); RBC 5.02 mil/uL (4.50-6.00); RDW 18.6 % (10.5-14.5); WBC 7.4 thou/uL (4.0-11.0)
[2017-09-18 08:01] LABS: CALCIUM 8.9 mg/dL (8.5-10.1); CREATININE 1.4 mg/dL (0.7-1.3); POTASSIUM 4.4 mmol/L (3.5-5.1)
[2017-09-18 08:43] VITALS: BP 185/88
[2017-09-18 16:42] VITALS: BP 187/91
[2017-09-18 20:08] VITALS: BP 163/82
[2017-09-18 23:43] VITALS: BP 183/83
[2017-09-19 03:29] VITALS: BP 181/90
[2017-09-19 05:39] LABS: HEMATOCRIT 36.3 % (42.0-52.0); HEMOGLOBIN 11.4 gm/dL (14.0-18.0); MCH 24.1 pg (26.0-34.0); MCHC 31.4 g/dL (28.0-37.0); MCV 76.7 fL (80.0-100.0); RBC 4.74 mil/uL (4.50-6.00); RDW 18.8 % (10.5-14.5)
[2017-09-19 05:44] VITALS: BP 181/87
[2017-09-19 05:50] LABS: CREATININE 1.2 mg/dL (0.7-1.3); POTASSIUM 4.3 mmol/L (3.5-5.1)
[2017-09-19 07:40] VITALS: BP 185/75
[2017-09-19 10:13] LABS: BE(vivo) -10.7 mmol/L (-2 to +3); HCO3 13.4 mmol/L (22.0-26.0); PCO2 25.4 mmHg (35.0-45.0); PO2 78.7 mmHg (80.0-100.0); sO2 95.3 % (92.0-98.0)
[2017-09-19 14:50] VITALS: BP 148/72
[2017-09-19 19:37] VITALS: BP 156/66
[2017-09-20 04:58] VITALS: BP 141/61
[2017-09-20 08:00] VITALS: BP 146/63
[2017-09-20 15:57] VITALS: BP 115/56
[2017-09-20 20:13] VITALS: BP 144/62
[2017-09-21 05:04] VITALS: BP 148/67
[2017-09-21 06:15] LABS: HEMATOCRIT 33.8 % (42.0-52.0); HEMOGLOBIN 10.8 gm/dL (14.0-18.0); MCH 24.5 pg (26.0-34.0); MCHC 32.1 g/dL (28.0-37.0); MCV 76.5 fL (80.0-100.0); RBC 4.42 mil/uL (4.50-6.00); RDW 18.5 % (10.5-14.5); WBC 12.8 thou/uL (4.0-11.0)
[2017-09-21 06:29] LABS: CALCIUM 8.6 mg/dL (8.5-10.1); CREATININE 1.7 mg/dL (0.7-1.3); POTASSIUM 3.8 mmol/L (3.5-5.1)
[2017-09-21 07:50] VITALS: BP 159/70
[2017-09-21 15:40] VITALS: BP 154/65
[2017-09-21 19:17] VITALS: BP 157/73
[2017-09-22 04:04] VITALS: BP 148/72
[2017-09-22 07:48] LABS: HEMATOCRIT 36.6 % (42.0-52.0); HEMOGLOBIN 11.7 gm/dL (14.0-18.0); MCH 24.1 pg (26.0-34.0); MCHC 31.9 g/dL (28.0-37.0); MCV 75.6 fL (80.0-100.0); RBC 4.84 mil/uL (4.50-6.00); RDW 18.6 % (10.5-14.5); WBC 9.2 thou/uL (4.0-11.0)
[2017-09-22 07:55] LABS: CREATININE 1.2 mg/dL (0.7-1.3); POTASSIUM 3.5 mmol/L (3.5-5.1)
[2017-09-22 08:00] VITALS: BP 167/81
[2017-09-22 11:57] VITALS: BP 172/86
[2017-09-22 16:00] VITALS: BP 187/76
[2017-09-22 20:00] VITALS: BP 152/80
[2017-09-23 04:08] VITALS: BP 156/86
[2017-09-23 08:45] VITALS: BP 168/89
[2017-09-23 16:05] VITALS: BP 182/93
[2017-09-23 20:09] VITALS: BP 95/54
[2017-09-24 00:12] VITALS: BP 174/88
[2017-09-24 03:25] VITALS: BP 185/88
[2017-09-24 04:44] LABS: CALCIUM 8.6 mg/dL (8.5-10.1); CREATININE 1.1 mg/dL (0.7-1.3); POTASSIUM 3.9 mmol/L (3.5-5.1)
[2017-09-24 08:45] VITALS: BP 185/88
[2017-09-24 19:21] VITALS: BP 158/74
[2017-09-25 05:58] VITALS: BP 168/69
[2017-09-25 09:42] VITALS: BP 174/82
[2017-09-25 11:11] LABS: HEMATOCRIT 36.1 % (42.0-52.0); HEMOGLOBIN 11.4 gm/dL (14.0-18.0); MCH 24.7 pg (26.0-34.0); MCHC 31.6 g/dL (28.0-37.0); MCV 78.3 fL (80.0-100.0); RBC 4.61 mil/uL (4.50-6.00); RDW 18.7 % (10.5-14.5); WBC 5.3 thou/uL (4.0-11.0)
[2017-09-25 11:29] LABS: ALBUMIN 2.4 g/dL (3.4-5.0); CALCIUM 8.6 mg/dL (8.5-10.1); CREATININE 1.1 mg/dL (0.7-1.3); POTASSIUM 3.4 mmol/L (3.5-5.1); TOTAL BILIRUBIN 0.3 mg/dL (<0.1-1.0); TOTAL PROTEIN 6.2 g/dL (6.4-8.2)
[2017-09-25 14:13] LABS: BE(vivo) -6.3 mmol/L (-2 to +3); HCO3 18.2 mmol/L (22.0-26.0); PCO2 32.6 mmHg (35.0-45.0); PO2 70.4 mmHg (80.0-100.0); pH 7.364 (7.360-7.450); sO2 93.8 % (92.0-98.0)
[2017-09-25 16:00] VITALS: BP 173/71
[2017-09-25 19:39] VITALS: BP 153/64
[2017-09-26 04:07] VITALS: BP 166/75
[2017-09-26 06:33] LABS: CALCIUM 8.4 mg/dL (8.5-10.1); CREATININE 1.2 mg/dL (0.7-1.3); POTASSIUM 3.5 mmol/L (3.5-5.1)
[2017-09-26 07:20] VITALS: BP 169/81
[2017-09-26 15:28] VITALS: BP 195/94
[2017-09-26 20:54] VITALS: BP 138/70
[2017-09-27 04:28] VITALS: BP 156/68
[2017-09-27 06:39] LABS: HEMATOCRIT 34.8 % (42.0-52.0); HEMOGLOBIN 11.4 gm/dL (14.0-18.0); MCH 24.8 pg (26.0-34.0); MCHC 32.7 g/dL (28.0-37.0); MCV 75.8 fL (80.0-100.0); RBC 4.59 mil/uL (4.50-6.00); RDW 18.1 % (10.5-14.5); WBC 8.9 thou/uL (4.0-11.0)
[2017-09-27 06:53] LABS: CALCIUM 8.5 mg/dL (8.5-10.1); CREATININE 1.3 mg/dL (0.7-1.3); POTASSIUM 3.3 mmol/L (3.5-5.1)
[2017-09-27 08:27] VITALS: BP 157/69
[2017-09-27 17:30] VITALS: BP 116/55
[2017-09-27 18:34] VITALS: BP 121/84
[2017-09-27 19:21] VITALS: BP 165/88
[2017-09-28 03:45] VITALS: BP 131/50
[2017-09-28 06:03] LABS: MCH 24.9 pg (26.0-34.0); MCHC 31.4 g/dL (28.0-37.0); MCV 79.4 fL (80.0-100.0); RBC 4.41 mil/uL (4.50-6.00); RDW 18.7 % (10.5-14.5); WBC 8.5 thou/uL (4.0-11.0)
[2017-09-28 06:19] LABS: CALCIUM 7.9 mg/dL (8.5-10.1); CREATININE 1.5 mg/dL (0.7-1.3); POTASSIUM 3.1 mmol/L (3.5-5.1)
[2017-09-28 08:50] VITALS: BP 133/58
[2017-09-28 15:50] VITALS: BP 144/57
[2017-09-28 20:00] VITALS: BP 114/56
[2017-09-29 04:30] VITALS: BP 95/62
[2017-09-29 06:11] LABS: HEMATOCRIT 28.6 % (42.0-52.0); HEMOGLOBIN 9.1 gm/dL (14.0-18.0); MCH 24.6 pg (26.0-34.0); MCHC 31.8 g/dL (28.0-37.0); MCV 77.3 fL (80.0-100.0); RBC 3.7 mil/uL (4.50-6.00); RDW 19.2 % (10.5-14.5)
[2017-09-29 06:29] LABS: CALCIUM 7.8 mg/dL (8.5-10.1); CREATININE 1.4 mg/dL (0.7-1.3); POTASSIUM 3.3 mmol/L (3.5-5.1)
[2017-09-29 07:24] VITALS: BP 125/59
[2017-09-29 16:58] VITALS: BP 126/59
[2017-09-29 19:25] VITALS: BP 129/55
[2017-09-30 05:16] VITALS: BP 171/82
[2017-09-30 08:00] VITALS: BP 168/82
[2017-09-30 13:15] VITALS: BP 136/73
[2017-10-01 04:30] VITALS: BP 151/80
[2017-10-01 06:32] LABS: HEMATOCRIT 31.7 % (42.0-52.0); HEMOGLOBIN 10.3 gm/dL (14.0-18.0); MCH 25.1 pg (26.0-34.0); MCHC 32.6 g/dL (28.0-37.0); RBC 4.11 mil/uL (4.50-6.00); RDW 19.5 % (10.5-14.5); WBC 8.9 thou/uL (4.0-11.0)
[2017-10-01 06:47] LABS: CALCIUM 8.1 mg/dL (8.5-10.1); CREATININE 1.5 mg/dL (0.7-1.3); POTASSIUM 3.6 mmol/L (3.5-5.1)
[2017-10-01 08:30] VITALS: BP 153/69
[2017-10-01 15:45] VITALS: BP 139/65
[2017-10-01 20:38] VITALS: BP 138/65
[2017-10-02 04:14] VITALS: BP 144/73
[2017-10-02 07:14] LABS: CALCIUM 8.2 mg/dL (8.5-10.1); CREATININE 1.4 mg/dL (0.7-1.3); POTASSIUM 3.5 mmol/L (3.5-5.1)
[2017-10-02 08:00] VITALS: BP 150/72
[2017-10-02] MEDS ORDERED: ENOXAPARIN40 MG/0.1 SUBQ (09:29)
[2017-10-02] MEDS ORDERED: LISINOPRIL20 MG PO (09:29)
[2017-10-02] MEDS ORDERED: AMLODIPINE BESY10 MG PO (09:29)
[2017-10-02 09:30] VITALS: BP 250/72
[2017-10-02] MEDS ORDERED: ACETAMINOPHEN325 M1 PO (09:30)
[2017-10-02] MEDS ORDERED: LACTULOSE20 GM/30 M PO (09:30)
[2017-10-02] MEDS ORDERED: BISAC-EVAC10 MG RECTAL (09:30)
[2017-10-02] MEDS ORDERED: HYDROCODON-ACE1 EAC7 PO (09:30)
[2017-10-02] MEDS ORDERED: PANTOPRAZOLE SO40 M1 PO (09:31)
[2017-10-02] MEDS ORDERED: LEVEMIR SUBQ (09:31)
[2017-10-02] MEDS ORDERED: NOVOLOG100 UNIT/1 SUBQ (09:31)
== END 2017-10-02 13:52 | DRG 417 ==
LOC: ER 14:52 → 4E 16:36 → EROBS 16:36 → 4E 17:41 → 2N 09-30 14:38 → 4E 09-30 15:40
PROVIDERS: Emergency Medicine; Internal Medicine; Internal Medicine Geriatric Medicine; Surgery
DX: K80.00 Calculus of gallbladder with acute cholecystitis without obstruction (principal); N17.0 Acute kidney failure with tubular necrosis; G93.41 Metabolic encephalopathy; G82.20 Paraplegia, unspecified; N30.00 Acute cystitis without hematuria; F32.9 Major depressive disorder, single episode, unspecified; E78.5 Hyperlipidemia, unspecified; I48.91 Unspecified atrial fibrillation; G35 Multiple sclerosis; K29.70 Gastritis, unspecified, without bleeding; K20.9 Esophagitis, unspecified; K44.9 Diaphragmatic hernia without obstruction or gangrene; N18.2 Chronic kidney disease, stage 2 (mild); E11.22 Type 2 diabetes mellitus with diabetic chronic kidney disease; I12.9 Hypertensive chronic kidney disease with stage 1 through stage 4 chronic kidney disease, or unspecified chronic kidney disease; Z60.2 Problems related to living alone; N31.9 Neuromuscular dysfunction of bladder, unspecified; Z84.89 Family history of other specified conditions; Z87.81 Personal history of (healed) traumatic fracture; Z79.899 Other long term (current) drug therapy
CPT/HCPCS: 10084; 10783; 50010; 50101; 50411; 50555; 50558; 51489; 53307; 53310; 53312; 55245; 55317; 56462; 56525; 56526; 62110; 62900; 70005

== ENCOUNTER → 2018-02-27 | Outpatient (CLI) | payer OTHER ==
[~2018-02-27] MED LIST changes: +AMLODIPINE BESY10 MG PO; +FLEET ENEMA133 ML RECTAL; +HYDROCODON-ACE1 EAC7 PO; +LACTULOSE20 GM/30 M PO; +LEVEMIR SUBQ; +LISINOPRIL20 MG PO; +MELATONIN5 M1 PO; +NYATA15 GM TOP; +PANTOPRAZOLE SO40 M1 PO; +SENNA-S TABLET1 EACH PO; +SERTRALINE HCL50 MG PO; +TRIAMCINOLONE A80 G2 TOP; +TYLENOL EXTRA500 MG PO
== END ==
LOC: HYPER 02-11 13:08
DX: E11.622 Type 2 diabetes mellitus with other skin ulcer (principal); L89.153 Pressure ulcer of sacral region, stage 3; L89.893 Pressure ulcer of other site, stage 3; L97.111 Non-pressure chronic ulcer of right thigh limited to breakdown of skin; L98.491 Non-pressure chronic ulcer of skin of other sites limited to breakdown of skin; G35 Multiple sclerosis; G82.20 Paraplegia, unspecified; I10 Essential (primary) hypertension; Z79.4 Long term (current) use of insulin; Z89.9 Acquired absence of limb, unspecified

== ENCOUNTER 2018-10-06 14:20 | Inpatient (IN) | payer OTHER ==
[~2018-10-06] VITALS: Ht 175.3 cm; Wt 93.0 kg
[2018-10-06 14:21] VITALS: BP 146/69
[2018-10-06] MEDS ORDERED: LEVEMIR SUBQ (14:58)
[2018-10-06] MEDS ORDERED: LACTULOSE20 GM/30 M PO (15:00)
[2018-10-06] MEDS ORDERED: NOVOLOG100 UNIT/1 SUBQ (15:01)
[2018-10-06] MEDS ORDERED: LISINOPRIL10 MG PO (15:02)
[2018-10-06] MEDS ORDERED: OMEPRAZOLE 20 M20 M1 PO (15:05)
[2018-10-06] MEDS ORDERED: KEFLEX250 MG PO (15:05)
[2018-10-06] MEDS ORDERED: NEURONTIN 300300 M1 PO (15:06)
[2018-10-06] MEDS ORDERED: TRIAMCINOLONE A80 G2 TOP (15:08)
[2018-10-06 15:36] LABS: ABSOLUTE NEUTROPHILS 4.9 thou/uL (1.4-8.2); EOSINOPHILS 4.4 % (0.0-3.0); HEMATOCRIT 39.7 % (42.0-52.0); LYMPHOCYTES 12.7 % (24.0-44.0); MCH 27.2 pg (26.0-34.0); MCHC 32.8 g/dL (28.0-37.0); MONOCYTES 7.1 % (1.0-8.0); PLATELET COUNT 321 thou/uL (150-400); POLYS 74.8 % (36.0-66.0); RBC 4.78 mil/uL (4.50-6.00); RDW 16.6 % (10.5-14.5); WBC 6.5 thou/uL (4.0-11.0)
[2018-10-06 15:44] LABS: CALCIUM 9.4 mg/dL (8.5-10.1); CREATININE 1.5 mg/dL (0.7-1.3)
[2018-10-06 15:50] LABS: ALBUMIN 3.4 g/dL (3.4-5.0); TOTAL BILIRUBIN 0.4 mg/dL (<0.1-1.0); TOTAL PROTEIN 7.9 g/dL (6.4-8.2)
[2018-10-06 19:08] VITALS: BP 150/88
--- NOTE | 2018-10-06 19:26 | NUR ---
SPOKE WITH EX- NOHEMI KWONG, CURRENT CONSERVATOR. [phone]. STATES PATIENT HAS HAD ADDICTION ISSUES IN THE PAST AND NOT TO GIVE HIM PAIN MEDICATIONS. WILL PASS ALONG TO PHYSICIAN.
[2018-10-06 20:00] VITALS: BP 139/59
[2018-10-06 20:35] VITALS: BP 127/48
--- NOTE | 2018-10-06 22:12 | EKG ---
[address] [address] ELECTROCARDIOGRAM REPORT Name: MARLEN HUBBARD Room #: 458-P ADM IN M.R.#: [id number] Admission: 10/06/18 Attend Phys: Mechelle Orosco Discharge: Date of : 51 Report #: [id number] THIS REPORT FOR: //name// [facility] ED Test Date: 2018-10-06 Test Time: 16:01:01 Pat Name: MARLEN HUBBARD Department: Room: 458 Gender: M Test Driller: suresh : 1950 Requested By: Mandy Sharp Order Number: [id number] MD: Efren Stout Measurements Intervals [place] Rate: 66 P: 36 GA: 130 QRS: 10 QRSD: 84 T: 31 QT: 378 QTc: 396 Interpretive Statements Sinus rhythm Low voltage, precordial leads Compared to ECG 10/25/2016 14:05:00 Low QRS voltage now present Electronically Signed On 10-06-2018 22:12:30 CARDIAC NURSE PRACTITIONER by Efren Stout [email or web address] <ELECTRONICALLY SIGNED> By: Efren Stout MD 10/06/18 2212 00 00 Efren Stout MD /SAYDA
[2018-10-07 04:00] VITALS: BP 143/68
[2018-10-07 08:19] VITALS: BP 129/48
[2018-10-07 10:14] LABS: CALCIUM 8.6 mg/dL (8.5-10.1); CREATININE 1.5 mg/dL (0.7-1.3); POTASSIUM 5.6 mmol/L (3.5-5.1)
--- NOTE | 2018-10-07 11:54 | NUR ---
TOWARDS POC PT A/O X4, VSS, AFEBRILE. CHRONIC PAIN NOTED, MANAGED BY MEDS. NO CONCERNS VOICED AT THIS TIME WILL CONTINUE TO MONITOR.
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
[2018-10-07 17:01] VITALS: BP 138/69
[2018-10-07 19:49] VITALS: BP 91/47
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
[2018-10-08 04:35] VITALS: BP 144/61
[2018-10-08 06:17] LABS: CALCIUM 8.9 mg/dL (8.5-10.1); CREATININE 1.4 mg/dL (0.7-1.3); POTASSIUM 4.7 mmol/L (3.5-5.1)
[2018-10-08 07:50] VITALS: BP 143/70
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
--- NOTE | 2018-10-08 11:34 | NUR ---
TOWARDS POC PT A/O X4, VSS, AFEBRILE. PAIN MANAGED BY MEDS. SUPRAPUBIC CATH INTACT, DRAINING WELL. NO CONCERNS VOICED AT THIS TIME. WILL CONTINUE TO MONITOR.
[2018-10-08 13:50] VITALS: BP 143/70
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
== END 2018-10-08 17:38 | disposition home health service (06) | DRG 683 ==
LOC: ER 14:20 → 4W 16:17 → EROBS 16:17 → 4W 20:23
PROVIDERS: Internal Medicine Geriatric Medicine; Physician Assistant; ADMIT Internal Medicine
DX: N17.9 Acute kidney failure, unspecified (principal); G82.20 Paraplegia, unspecified; I12.9 Hypertensive chronic kidney disease with stage 1 through stage 4 chronic kidney disease, or unspecified chronic kidney disease; E87.5 Hyperkalemia; N18.3 Chronic kidney disease, stage 3 (moderate); F32.9 Major depressive disorder, single episode, unspecified; E66.9 Obesity, unspecified; E11.22 Type 2 diabetes mellitus with diabetic chronic kidney disease; G35 Multiple sclerosis; N31.9 Neuromuscular dysfunction of bladder, unspecified; E78.5 Hyperlipidemia, unspecified; Z90.49 Acquired absence of other specified parts of digestive tract; Z87.81 Personal history of (healed) traumatic fracture; Z68.30 Body mass index [BMI] 30.0-30.9, adult; Z79.4 Long term (current) use of insulin; Z79.899 Other long term (current) drug therapy; X31.XXXA Exposure to excessive natural cold, initial encounter
CPT/HCPCS: 10040

== ENCOUNTER 2019-03-12 14:55 | Inpatient (IN) | payer OTHER ==
[~2019-03-12] VITALS: Ht 175.3 cm; Wt 94.8 kg
--- NOTE | ~2019-03-12 | HC ---
[facility] [place] [address] CONSULTATION Name: MARLEN HUBBARD Rusty Room #: 245-[facility] IN M.R.#: [id number] Admission: 03/12/19 ������������������ Attend Phys: Nely Rodrigues MD Discharge: ������������������ Date of : 51 Report #: [id number] THIS REPORT FOR: //name// CC: Daniel Rodrigues PALLIATIVE CARE CONSULTATION REQUESTING PHYSICIAN: Dr. Daniel Jiménez. CHIEF COMPLAINT: Acute hypoxic respiratory failure. HISTORY OF PRESENT ILLNESS: The patient is a 68-year-old male, who presented initially to [facility] on 03/12. The patient had presented with history of MS, quadriparesis secondary to this. He presented additionally with hypoxic respiratory failure. He has a history of being wheelchair bound and bedbound. Other than that, he had had a fall recently with broken right hip. There was a plan to do surgery, but he developed again worsening symptoms, found to have sepsis likely secondary to pneumonia and possible urinary tract infection again causing him to have hypoxic respiratory failure. The patient subsequently has had delirium, decreased responsiveness, required BiPAP, has not had improvement in his overall condition and has developed acute renal failure. Unfortunately, at this time, the patient appears to have a poor overall prognosis and I have been consulted secondary to this. I cannot obtain information from the patient. I did discuss with his ex- and daughter, Lavern, who both state that the patient would desire to have no additional measures including intubation and confirmed his DNR status at this time. PAST MEDICAL HISTORY: Multiple sclerosis with quadriparesis, syringomyelia, wheelchair bound, history of recurrent falls, type 2 diabetes, hypertension, hyperlipidemia. SURGICAL HISTORY: Cholecystectomy, suprapubic catheter. MEDICATIONS: Norvasc, Coreg, Zoloft, Levemir, NovoLog, omeprazole, gabapentin. SOCIAL HISTORY: Again, daughter, Solange; daughter, Clotilde and ex-, Demetrice are his durable power of employee benefits attorney. Currently DNR status. Sister and hotnyuq-rd-htc were present when I interviewed today. FAMILY HISTORY: Noncontributory. ALLERGIES: No known drug allergies. REVIEW OF SYSTEMS: Unable to obtain due to present medical condition. PHYSICAL EXAMINATION: [facility] [address] [place] [address] CONSULTATION Name: MARLEN HUBBARD Rusty Room #: 245-P [facility] IN [facility].#: [id number] Admission: 03/12/19 ������������������ Attend Phys: Nely Rodrigues MD Discharge: ������������������ Date of : 51 Report #: [id number] VITAL SIGNS: Temperature 36.3, pulse 100, respirations 31, down to about 22 at my visit, but he was sitting forward in some adky-zf-mgeulgcu respiratory distress. Blood pressure 119/55. GENERAL: The patient appeared to be awake, but was unable to obtain information, was not following commands clearly. HEENT: Extraocular muscles appear to be intact. No scleral icterus. No conjunctival injection. CARDIOVASCULAR: Tachycardic, but regular rhythm. RESPIRATORY: Tachypneic. He had a BiPAP sounds present. No apparent significant adventitial sounds, otherwise. ABDOMEN: Mild diffuse tenderness. Decreased bowel sounds noted. EXTREMITIES: Diffuse edema noted. LABORATORY DATA: These include potassium 3.1, creatinine 2.6. ASSESSMENT AND PLAN: 1. Acute hypoxic respiratory failure. Again, the patient is requiring BiPAP at this time. He has had worsening overall status, likely due to pneumonia. I have discussed with spouse and with daughter as the patient has no capacity to make decisions at this time. Other daughter, Solange is apparently out of the country and unable to be reached for this. ____ meeting tomorrow at 11:00 per daughter, Clotilde's request to discuss further. Spent approximately 25 minutes in discussion of advanced care planning today, confirmed DNR status, confirmed that they are likely to desire withdrawal of BiPAP tomorrow and switch to nasal cannula. We will discuss further that this does not guarantee, the patient will have a rapid decline, but the patient may benefit from a disposition to hospice dedicated facilities such as a hospice house or even long-term care with hospice. I did change medications from fentanyl to morphine to be administered as needed for air hunger or pain. Morphine equivalents were appreciated at this time and did give ability to change this overnight, increased Ativan to 1 mg q.4 hours p.r.n. as well for anxiety. The patient appeared to improve with another 50 mcg of fentanyl prior to my leaving. 2. Multiple sclerosis with quadriparesis. Again, this affects his overall quality of life. It appears that this is a big decision making factor with regards to family's decisions at this time. 3. Acute renal failure. Again, this contributes to overall present condition and I appreciate the advice from his current specialist teams. Thank you very much for this consultation. I will follow up tomorrow at 11:00 and advise further with regards to our changes in care. ��������������������������������������������� ���������������������������������������� By: ��������������������������������������������� 2300 0145 Joel Quintanilla DO /nt
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
--- NOTE | ~2019-03-12 | D ---
[facility] [place] [address] DISCHARGE SUMMARY Name: MARLEN HUBBARD Rusty Room #: 245-P [facility]..#: [id number] Admission: 03/12/19 ������������������ Attend Phys: Nely Rodrigues MD Discharge: 03/19/19 ������������������ Date of : 52 Report #: [id number] THIS REPORT FOR: //name// CC: Daniel Rodrigues DATE OF SERVICE: 03/19/2019 FINAL DIAGNOSES: 1. Generalized sepsis. 2. Metabolic acidosis. 3. Acute hypoxic respiratory failure. 4. Acute kidney injury. 5. Pneumonia. 6. Multiple sclerosis. 7. Sacral decubitus ulcer. 8. Diabetes type 2. 9. Right hip fracture over a week old. HOSPITAL COURSE: The patient was admitted to the Emergency Room with shortness of breath and generalized weakness. He was found to have a right hip fracture from a fall a week prior. Orthopedics saw him and did not feel he was a surgical candidate at this time. He was hypotensive and hypoxic and requiring significant support. He was admitted to ICU and treated and diagnosed with generalized sepsis. A urine culture eventually grew E. coli and Pseudomonas. He required pressors and significant IV fluids for support. He did have peripheral edema and is noted to have acute kidney injury and Renal service followed him as well. He had diffuse significant hypoxic respiratory failure, requiring BiPAP and a metabolic acidosis related to the underlying sepsis. His family and durable power of attorneys were consulted and they request Do Not Resuscitate. He had several days of support, but really did not show any improvement. His mentation did not improve. He was marginally alert. He was requiring BiPAP during the course of his stay and he was still requiring IV antibiotics and at times, blood pressure support. Multiple consultants were involved in his care and had discussions with his durable power of attorneys. I met with them during his stay as well. Ultimately, as he showed no respiratory improvement or mental improvement and there were no plans for intubation or aggressive invasive treatment, they requested a palliative care services at that point. Medication was offered to treat his symptoms for comfort. BiPAP was discontinued and he was placed on nasal cannula. Other medications were [facility] [address] [place] [address] DISCHARGE SUMMARY Name: MARLEN HUBBARD Rusty Room #: 245-P [facility] IN .R.#: [id number] Admission: 03/12/19 ������������������ Attend Phys: Nely Rodrigues MD Discharge: 03/19/19 ������������������ Date of : 52 Report #: [id number] discontinued. He from his underlying sepsis, renal failure and respiratory event. ��������������������������������������������� ���������������������������������������� By: ��������������������������������������������� 1021 1105 Daniel iJménez MD /nt
[~2019-03-12 14:55] MED LIST changes: +KEFLEX250 MG PO; +OMEPRAZOLE 20 M20 M1 PO
[2019-03-12 14:56] VITALS: BP 110/67
[2019-03-12 17:49] LABS: HEMATOCRIT 36.6 % (42.0-52.0); HEMOGLOBIN 11.7 gm/dL (14.0-18.0); MCH 25.9 pg (26.0-34.0); MCHC 31.9 g/dL (28.0-37.0); MCV 81.2 fL (80.0-100.0); RBC 4.51 mil/uL (4.50-6.00); RDW 18.7 % (10.5-14.5); WBC 14.4 thou/uL (4.0-11.0)
[2019-03-12 18:10] LABS: CALCIUM 9.1 mg/dL (8.5-10.1); CREATININE 1.3 mg/dL (0.7-1.3); POTASSIUM 4.2 mmol/L (3.5-5.1)
[2019-03-12 18:12] LABS: URINE BILIRUBIN NEGATIVE (Negative); URINE BLOOD 2+ (Negative); URINE CLARITY CLEAR; URINE COLOR YELLOW; URINE GLUCOSE-RANDOM* NEGATIVE (Negative); URINE KETONES NEGATIVE (Negative); URINE PROTEIN (DIPSTICK) 1+ (Negative); URINE UROBILINOGEN 0.2 E.U./dl (0.2-1.0)
[2019-03-12 18:14] LABS: URINE LEUKOCYTES-REFLEX 2+ (Negative); URINE NITRITE-REFLEX POSITIVE (Negative)
[2019-03-12 18:22] LABS: CASTS None Seen /LPF (None Seen); SQUAMOUS None Seen /LPF (0-3)
[2019-03-12 18:23] LABS: CRYSTALS None Seen /LPF (None Seen); MUCUS >6 Heavy strn/LPF (None Seen); URINE RBC 3-10 Few /HPF (0-2); URINE WBC-REFLEX >25 Many /HPF (0-5); WBC CLUMPS Many (None Seen); YEAST-REFLEX Present (None Seen)
[2019-03-12 20:01] VITALS: BP 117/55
[2019-03-12 20:17] VITALS: BP 117/55
--- NOTE | 2019-03-13 03:20 | NUR ---
PT ARRIVED ON UNIT FROM ED. FAMILY ACCOMPLANIED PT. ASSESSMENT COMPLETE. ADMISSION COMPLTED. PLACED ON 2L O2 VIA NC. VSS. IV DRESSING C/D/I, NO SIGNS OF INFILTRATION. ALERT AND ORIENTED X4. REDNESS AND BLISTERS TO BOTTOM, PICTURE TAKEN. FALL PRECAUTIONS IN PLACE. PLACED ON ISO FOR HX OF MRSA. CALL LIGHT WITHIN REACH. WILL CONTINUE POC UNTIL EOS.
[2019-03-13 04:39] VITALS: BP 108/49
[2019-03-13 08:51] VITALS: BP 104/56
[2019-03-13] MEDS ORDERED: LIPITOR10 MG PO (09:24)
--- NOTE | 2019-03-13 13:32 | NUR ---
WOUND CARE CONSULT; ROUNDING WITH DR CLAIRE AND BECKY FILLER BLOCK INSERTER REMOVER. THE PATIENT IS HAVING HIP SURGERY SOON. HE IS IN PAIN THEREFORE DID NOT ASSESS THE WOUNDS. WE WILL FOLLOW UP TOMORROW. DISCUSSED WITH GISELLE
--- NOTE | 2019-03-13 13:37 | NUR ---
RD consulted for pt with sacral/gluteal, groin wound. Wound care will be following. Pt with hx MS, diabetes and admitted with pneumoia and hip fracture following a fall. Has been wheelchair bound x 15 yrs. NPO for pending right hip hemiarthroplasty. No pert labs available. Chart reviewed and wts stable at least 6 mo. Protein calorie malnutrition has been indicated by physician; will defer until more information available. Await for diet to readvance, then follow up again to determine appetite/intake trends, and any need for oral supplement. Followup again on 03/16
--- NOTE | 2019-03-13 14:40 | NUR ---
PT ADMITTED RELATED TO HIP FX, PNEUMONIA. CM REVIEWED CHART AND SPOKE WITH CARE TEAM. CM MET WITH PT, EX-/DPOA, AND DTR AT BEDSIDE THIS DAY. PT WAS VERY SLEEPY BUT WAS ABLE TO ASSIST IN ANSWERING QUESTIONS. PT IS PARAPLEGIC. PT HAD BEEN LIVING IN A HOUSE ALONE WITH GAREGIVER SERVICES THROUGH COMFORT KEEPERS FROM 12-6 7 DAYS A WEEK. HE HAS A HOSPITAL BED, JACQUELINE LIFT, WC, AND ELECTRIC SCOOTER TO ASSIST WITH MOBILITY CNA HHA. FAMILY INDICATED THAT PT HAD BASICALLY BEEN BED BOUND CNA HHA AND HADN'T BEEN USING JACQUELINE. CM INDICATED THAT CM WOULD FOLLOW REGARDING DC NEEDS ONCE PT IS MEDICALLY STABLE. CM TO FOLLOW INDICATED WITH DC PLANNING.
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
--- NOTE | 2019-03-13 18:30 | NUR ---
PT ASSESSED AT START OF SHIFT. DR. SNYDER IN TO SEE PT AND DISCUSSED PLAN W/ DR. SIMENTAL. NO HIP REPAIR SURGERY AT THIS TIME FOR PNEUMONIA AND UTI AND WOUNDS. PT SPEAKING IN WHISPERED VOICE. SWALLOW PRECAUTIONS. ORDERS NOTED.
[2019-03-13 19:48] VITALS: BP 94/58
[2019-03-14] VITALS (59 sets, daily range): BP systolic 65–116; BP diastolic 26–91
--- NOTE | 2019-03-14 02:48 | NUR ---
ASSUMED PT CARE 1899. PT ALERT AND ORIENTED. REASSESSMENT COMPLETE, VSS. IV DRESSING C/D/I. PT REPORTS PAIN, SEE EMAR. REPORTS N/V, SEE EMAR. ICE CHIPS PROVIDED. ICE PACK PLACED TO R HIP. FREQUENT ROUNDING. CALL LIGHT WITHIN REACH. WILL CONTINUE POC UNTIL EOS.
[2019-03-14 05:39] LABS: CALCIUM 7.6 mg/dL (8.5-10.1)
[2019-03-14 05:42] LABS: POTASSIUM 5.4 mmol/L (3.5-5.1)
[2019-03-14 07:22] LABS: BE(vivo) -20.3 mmol/L (-2 to +3); HCO3 6.3 mmol/L (22.0-26.0); PO2 87.5 mmHg (80.0-100.0); sO2 94.5 % (92.0-98.0)
[2019-03-14 07:23] LABS: PCO2 17.9 mmHg (35.0-45.0); pH 7.167 (7.360-7.450)
[2019-03-14 08:35] LABS: CALCIUM 7.6 mg/dL (8.5-10.1); CREATININE 2.1 mg/dL (0.7-1.3); POTASSIUM 5.2 mmol/L (3.5-5.1)
--- NOTE | 2019-03-14 09:00 | NUR ---
PT ASSESSED AFTER CHANGE OF SHIFT. VS TAKEN AND PT NOTED TO BE HYPOTENSIVE. INCREASED RR W/ LABORED BREATHING W/ INCREASED O2 NEED. RAPID ASSESSMENT TEAM CALLED. DR. SNYDER NOTIFIED AND STAT ORDERS OBTAINED AND TO MOVE PT TO ICU. CONSULTS CALLED TO DR. MARTINEZ AND DENIS. REPORT CALLED TO DEMI CHEF AND PT MOVED PER BED AT THIS TIME.
[2019-03-14 09:38] LABS: BE(vivo) -15.6 mmol/L (-2 to +3); HCO3 9.8 mmol/L (22.0-26.0); sO2 94.9 % (92.0-98.0)
[2019-03-14 09:39] LABS: PCO2 22.7 mmHg (35.0-45.0); pH 7.253 (7.360-7.450)
--- NOTE | 2019-03-14 13:13 | NUR ---
WOUND CARE FOLLOW UP; ROUNDING WITH DR CLAIRE AND BECKY ROAD ROLLER ENGINEER. SACRUM AND INNER THIGHS SHOW IMPROVEMENT. CONT. POC
--- NOTE | 2019-03-14 13:25 | NUR ---
vascular access team consulted for cvad, PT WAS PREPPED AND DRAPED FOR MAX BARRIER PRECAUTIONS.LIJ WAS WIDELY PATENT WITH USG 6FR JACC INSERTED HAD DIFFICULTY DROPPING LINE. CXR OBTAINED LINE CURLED BACK ON ITSELF. DR MARTINEZ PRESENT LINE PULLED BACK AND POWER FLUSHED BUT CONTINUES TO CURL IN SAME AREA OF CHEST. DR MARTINEZ ORDERED THAT PT GO TO IR FOR FLUORO DUE TO POSSIBLE OBSTRUCTION IN AREA. SPOKE WITH IR,ORDER PLACED AND CL REMOVED PER IR INSTRUCTIONS.
--- NOTE | 2019-03-14 13:42 | NUR ---
PT ARRIVED FROM 427 AT 0850. PLACED ON MONITOR. PT STATES HE WANTS TO DRINK JUICE, KEPT NPO. NEEDS SWALLOW EVAL. IV TEAM ATTEMPTED CENTRAL LINE PLACEMENT, COILED. ORDERS TO GO TO IR FOR LINE. STARTED ON LEVO. ABX CHANGED. FAMILY AT BEDSIDE.
--- NOTE | 2019-03-14 14:59 | 2DMMODE ---
[facility] [place] [address] 2 D/M-MODE ECHOCARDIOGRAM Name: STEVIEMARLEN Room #: 245-P ADM IN ..#: [id number] ������������� Admission: 03/12/19 ������������� Attend Phys: Mechelle Torres Discharge: ��� ������������� ��� Date of : 52 Date of Service: 03/14/19 1459 �� Report #: [id number] �������� ��������������������������������������������[id number] THIS REPORT FOR: //name// APPROVED REPORT Study performed: 03/14/2019 13:59:53 EXAM: Comprehensive 2D, Doppler, and color-flow Echocardiogram Patient Location: ICU Room #: [facility] Status: routine BSA: 2.07 HR: 72 bpm BP: 76/37 mmHg Rhythm: NSR Other Information Study Quality: Technically DifficultTechnically Limited Technically limited study due to body habitus, inability to position patient. Indications Diabetes Hypertension/HDD Hypoxia Aortic Valve AoV Peak Jaime.: 1.54 m/s AO Peak Gr.: 9.49 mmHg Left Ventricle The left ventricle is normal size. There is normal left ventricular wall thickness. The left ventricular systolic function is normal. The left ventricular ejection fraction is within the normal range. LVEF is 60-65%. The diastolic function is abnormal. Right Ventricle Right ventricle is not well visualized. The right ventricular systolic function is normal. Atria The left atrium size is normal. Right atrium is not well visualized. Aortic Valve [facility] [address] [place] [address] 2 D/M-MODE ECHOCARDIOGRAM Name: MARLEN HUBBARD Room #: 245-P ADM IN M.R.#: [id number] ������������� Admission: 03/12/19 ������������� Attend Phys: Mechelle Torres Discharge: ��� ������������� ��� Date of : 52 Date of Service: 03/14/19 1459 �� Report #: [id number] �������� ��������������������������������������������[id number] The aortic valve is not well visualized. No aortic regurgitation is present. There is no aortic valvular stenosis. Mitral Valve The mitral valve is normal in structure. There is no mitral valve regurgitation noted. No evidence of mitral valve stenosis. Tricuspid Valve Tricuspid valve is not well visualized. There is no tricuspid valve regurgitation noted. Pulmonic Valve Pulmonic valve is not visualized. Great Vessels The aortic root is not well visualized but is probably normal size. IVC is not well visualized. Pericardium There is no pericardial effusion. <Conclusion> The left ventricle is normal size. LVEF is 60-65%. Right ventricle is not well visualized. The aortic valve is not well visualized. The mitral valve is normal in structure. Tricuspid valve is not well visualized. Pulmonic valve is not visualized. There is no pericardial effusion. ��������������������������������������������� <ELECTRONICALLY SIGNED> ���������������������������������������� By: Miles Machuca MD ��������������������������������������������� 03/14/19 1459 1459 1459 Miles Machuca MD /INF
[2019-03-14 16:00] LABS: HCO3 7.8 mmol/L (22.0-26.0); PO2 81.5 mmHg (80.0-100.0); sO2 92.2 % (92.0-98.0)
[2019-03-14 16:01] LABS: PCO2 24.8 mmHg (35.0-45.0); pH 7.117 (7.360-7.450)
[2019-03-14 17:40] LABS: CALCIUM 7.1 mg/dL (8.5-10.1); CREATININE 2.4 mg/dL (0.7-1.3); POTASSIUM 5.5 mmol/L (3.5-5.1)
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
--- NOTE | 2019-03-14 21:56 | EKG ---
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: AUDRA : 1950 Requested By: Puma Karimi Order Number: [id number] MD: Miles Machuca Measurements Intervals [place] Rate: 75 P: 43 VT: 130 QRS: 2 QRSD: 90 T: 27 QT: 423 QTc: 473 Interpretive Statements Sinus rhythm Low voltage, precordial leads early transition Nonspecific ST-T wave changes Compared to ECG 10/06/2018 16:01:01 T-wave abnormality now present Electronically Signed On 03-14-2019 21:56:16 CDT by Miles Machuca [email or web address] ��������������������������������������������� <ELECTRONICALLY SIGNED> ���������������������������������������� By: Miles Machuca MD ��������������������������������������������� 03/14/19 2156 4 4 Miles Machuca MD /EPI
[2019-03-14 22:58] LABS: BE(vivo) -19.8 mmol/L (-2 to +3); HCO3 8.3 mmol/L (22.0-26.0); PCO2 27.2 mmHg (35.0-45.0); PO2 76.6 mmHg (80.0-100.0); sO2 90.5 % (92.0-98.0)
[2019-03-14 22:59] LABS: HEMATOCRIT 30.5 % (42.0-52.0); MCH 25.6 pg (26.0-34.0); MCV 85.3 fL (80.0-100.0); RBC 3.58 mil/uL (4.50-6.00); RDW 19.3 % (10.5-14.5); pH 7.104 (7.360-7.450)
[2019-03-14 23:05] LABS: HEMATOCRIT 32.9 % (42.0-52.0); MCH 26.2 pg (26.0-34.0); MCHC 29.6 g/dL (28.0-37.0); PLATELET COUNT 464 thou/uL (150-400); RBC 3.71 mil/uL (4.50-6.00); RDW 20.3 % (10.5-14.5); WBC 15.1 thou/uL (4.0-11.0)
[2019-03-14 23:11] LABS: CALCIUM 6.9 mg/dL (8.5-10.1); CREATININE 2.6 mg/dL (0.7-1.3); POTASSIUM 5.4 mmol/L (3.5-5.1)
[2019-03-14 23:14] LABS: HEMOGLOBIN 9.2 gm/dL (14.0-18.0)
[2019-03-14 23:15] LABS: HEMOGLOBIN 9.7 gm/dL (14.0-18.0); MCV 88.5 fL (80.0-100.0)
[2019-03-14 23:24] LABS: ALBUMIN 1.8 g/dL (3.4-5.0); CALCIUM 6.9 mg/dL (8.5-10.1); CREATININE 2.5 mg/dL (0.7-1.3); POTASSIUM 5.4 mmol/L (3.5-5.1); TOTAL BILIRUBIN 0.6 mg/dL (<0.1-1.0); TOTAL PROTEIN 5.6 g/dL (6.4-8.2)
--- NOTE | 2019-03-14 23:27 | NUR ---
DR. MARTINEZ AT BEDSIDE ATTEMPTING TO PLACE A LINE. PT STARTED ON SEPSIS PROTOCOL. PT FIRST SET OF LABS SENT OFF. PT TO HAVE SPOT CVP MONITORING. CURRENTLY RUNNING LEVO AND DOPAMINE GTT BUT SWITCHING DOPAMINE TO VASO GTT ONCE RECEIVED FROM PHARMACY. PT GETTING 1LITER BOLUS NS. PT REMAINS DROWSY AT TIMES AND MENTIONING HE WANTS A COCA-COLA.
[2019-03-14 23:39] LABS: FIBRINOGEN 410.6 mg/dL (210-360); INR 1.2; PROTIME 12.7 Seconds (9.3-11.4)
[2019-03-15] VITALS (20 sets, daily range): BP systolic 76–153; BP diastolic 30–68
--- NOTE | 2019-03-15 00:11 | NUR ---
Pt's conditions became deteriorated, remains hypotensive despite on 3 pressors(max on levophed and Vaspressin) His ABP remains in 70's. Notified Ms.Lauren Mazariegos who is list as 1 of his DPOA. She will pass on information to ,and Lavern. We will be expecting them soon.
[2019-03-15 00:16] LABS: ABSOLUTE NEUTROPHILS 14.2 thou/uL (1.4-8.2); ANISOCYTOSIS 2+
[2019-03-15 01:10] LABS: BE(vivo) -18.3 mmol/L (-2 to +3); HCO3 9.6 mmol/L (22.0-26.0); PCO2 29.7 mmHg (35.0-45.0); PO2 96.1 mmHg (80.0-100.0); sO2 95.1 % (92.0-98.0)
[2019-03-15 01:11] LABS: pH 7.126 (7.360-7.450)
--- NOTE | 2019-03-15 01:26 | NUR ---
SPOKE TO DR. MARTINEZ REGARDING CRITICAL ABG RESULT AND WHAT IV MEDS HE IS STILL ON. OKAY TO START EPI GTT TOO. PT FAMILY HERE AND WE ALL DISCUSSED CURRENT STATUS AND MEASURES THAT HAVE BEEN TAKEN. FAMILY TRYING TO DETERMINE BEST CARE FOR HIM NOW.
[2019-03-15 04:02] LABS: CALCIUM 6.5 mg/dL (8.5-10.1); CREATININE 2.6 mg/dL (0.7-1.3)
[2019-03-15 04:03] LABS: POTASSIUM 4.1 mmol/L (3.5-5.1)
[2019-03-15 04:06] LABS: ALBUMIN 1.7 g/dL (3.4-5.0); CALCIUM 6.5 mg/dL (8.5-10.1); CREATININE 2.7 mg/dL (0.7-1.3); MAGNESIUM 1.5 mg/dL (1.8-2.4); PHOSPHORUS 6.1 mg/dL (2.5-4.9); TOTAL BILIRUBIN 0.6 mg/dL (<0.1-1.0); TOTAL PROTEIN 5.7 g/dL (6.4-8.2)
--- NOTE | 2019-03-15 04:37 | NUR ---
0400 PLACED PT ON CHECO HUGGER, UNABLE TO GET READING ON TEMP
[2019-03-15 05:39] LABS: BE(vivo) -11.9 mmol/L (-2 to +3); HCO3 14.4 mmol/L (22.0-26.0); PCO2 33.9 mmHg (35.0-45.0); PO2 89.2 mmHg (80.0-100.0); pH 7.246 (7.360-7.450); sO2 95.5 % (92.0-98.0)
[2019-03-15 06:05] LABS: ABSOLUTE NEUTROPHILS 17.5 thou/uL (1.4-8.2); BASOPHILS 0.3 % (0.0-2.0); EOSINOPHILS 0.1 % (0.0-3.0); HEMATOCRIT 30.6 % (42.0-52.0); HEMOGLOBIN 9.8 gm/dL (14.0-18.0); LYMPHOCYTES 3.9 % (24.0-44.0); MCH 26.1 pg (26.0-34.0); MCHC 32.1 g/dL (28.0-37.0); MCV 81.4 fL (80.0-100.0); MONOCYTES 4.9 % (1.0-8.0); PLATELET COUNT 547 thou/uL (150-400); POLYS 90.8 % (36.0-66.0); RBC 3.76 mil/uL (4.50-6.00); RDW 18.1 % (10.5-14.5); WBC 19.3 thou/uL (4.0-11.0)
[2019-03-15 06:24] LABS: CALCIUM 6.9 mg/dL (8.5-10.1); CREATININE 2.6 mg/dL (0.7-1.3); POTASSIUM 3.8 mmol/L (3.5-5.1)
[2019-03-15 06:34] LABS: URINE BLOOD 1+ (Negative); URINE CLARITY CLOUDY; URINE COLOR YELLOW; URINE GLUCOSE-RANDOM* NEGATIVE (Negative); URINE KETONES 1+ (Negative); URINE NITRITE-REFLEX NEGATIVE (Negative); URINE PROTEIN (DIPSTICK) 2+ (Negative); URINE SPECIFIC GRAVITY 1.025 (1.005-1.035)
[2019-03-15 06:36] LABS: ICTOTEST (BILI CONFIRMATORY) Negative (Negative); URINE BILIRUBIN NEGATIVE (Negative); URINE LEUKOCYTES-REFLEX 2+ (Negative)
[2019-03-15 07:14] LABS: URINE WBC-REFLEX >25 Many /HPF (0-5); YEAST-REFLEX Present (None Seen)
[2019-03-15 07:15] LABS: CASTS None Seen /LPF (None Seen); CRYSTALS None Seen /LPF (None Seen); URINE RBC 3-10 Few /HPF (0-2)
[2019-03-15 07:16] LABS: SQUAMOUS 0-3 Few /LPF (0-3); TRANSITIONAL EPITHEL CELL 0-3 Few /LPF (None Seen)
[2019-03-15 10:06] LABS: CALCIUM 6.9 mg/dL (8.5-10.1); CREATININE 2.5 mg/dL (0.7-1.3); POTASSIUM 4.4 mmol/L (3.5-5.1)
[2019-03-15 13:18] LABS: CALCIUM 6.8 mg/dL (8.5-10.1); CREATININE 2.8 mg/dL (0.7-1.3)
[2019-03-15 13:20] LABS: POTASSIUM 3.4 mmol/L (3.5-5.1)
--- NOTE | 2019-03-15 15:05 | NUR ---
ASSUMED CARE OF PT AT 1000 THIS SHIFT. PT HAS BEEN ON BIPAP, MINIMALLY RESPONSIVE THIS SHIFT. PT IS ON 4 PRESSORS FOR BP SUPPORT, TRYING TO WEAN DOWN MAX THIS SHIFT PER DR DARNELL'S ORDER. PT IS MAKING MINIMAL URINE, EVEN AFTER MORNING DOSE OF LASIX THIS SHIFT. PT HAS HAD VISITORS THIS SHIFT, EDUCATION WAS PROVIDED. PLAN OF CARE IS TO CONTINUE TO MONITOR PT CLOSELY THIS SHIFT.
[2019-03-15 16:24] LABS: CALCIUM 6.7 mg/dL (8.5-10.1); CREATININE 2.8 mg/dL (0.7-1.3); POTASSIUM 3.4 mmol/L (3.5-5.1)
[2019-03-16] VITALS (11 sets, daily range): BP systolic 104–148; BP diastolic 43–62
[2019-03-16 00:03] LABS: CALCIUM 6.1 mg/dL (8.5-10.1); CREATININE 2.9 mg/dL (0.7-1.3); POTASSIUM 4.1 mmol/L (3.5-5.1)
[2019-03-16 06:05] LABS: ABSOLUTE NEUTROPHILS 11.1 thou/uL (1.4-8.2); BASOPHILS 0.5 % (0.0-2.0); EOSINOPHILS 0.2 % (0.0-3.0); HEMATOCRIT 26.4 % (42.0-52.0); HEMOGLOBIN 8.7 gm/dL (14.0-18.0); LYMPHOCYTES 4.5 % (24.0-44.0); MCH 25.9 pg (26.0-34.0); MCHC 32.9 g/dL (28.0-37.0); MCV 78.8 fL (80.0-100.0); MONOCYTES 11.3 % (1.0-8.0); POLYS 83.5 % (36.0-66.0); RBC 3.35 mil/uL (4.50-6.00); RDW 18.5 % (10.5-14.5); WBC 13.4 thou/uL (4.0-11.0)
[2019-03-16 06:08] LABS: PLATELET COUNT 357 thou/uL (150-400)
[2019-03-16 06:14] LABS: CALCIUM 6.2 mg/dL (8.5-10.1); CREATININE 2.9 mg/dL (0.7-1.3); POTASSIUM 3.4 mmol/L (3.5-5.1)
--- NOTE | 2019-03-16 06:16 | NUR ---
SHIFT NOTE PT ALERT AND OPENS EYES SPONTANEOUSLY. PT TURNED Q2H AND PRN. PT KEPT DRY AND CLEAN. PT ORAL CARE COMPLETED. PT DRIPS TITRATED THOUGH OUT THE SHIFT BASED ON MAP. PT STAYED ON CONTINUOUS BIPAP THOUGH OUT THE NIGHT. PT HAD NO S/SX OF PAIN, SOA, CHEST PAIN, OR NV. MELO TO DD AND HAD ADIQUATE OUTPUT. PT ART LINE IN PLACE. PT WILL COTNINUE TO BE MONITORE TILL THE END OF THE SHIFT.
[2019-03-16 23:56] LABS: CALCIUM 6.3 mg/dL (8.5-10.1); CREATININE 2.7 mg/dL (0.7-1.3); POTASSIUM 3.4 mmol/L (3.5-5.1)
[2019-03-17] VITALS (11 sets, daily range): BP systolic 110–123; BP diastolic 50–65
--- NOTE | 2019-03-17 03:12 | NUR ---
ASSUMED PT CARE AROUND 1900. ORIENTED TO SELF. APPEARS TO UNDERSTAND HE IS IN THE HOSPITAL. PT SLEPT MOST OF THE NIGHT, OCCASSIONALLY RESTLESS AND PULLS AT BIPAP MASK. REORIENTATION PROVIDED. VSS. LEVOPHED GTT INFUSING. REMAINS ON BIPAP. TOLERATING WELL. ORAL CARE PROVIDED. MELO TO DD W/ ADEQUATE URINE OUTPUT. REPOSITIONED FREQUENTLY TO PREVENT FURTHER SKIN BREAKDOWN. BARRIER CREAM AND ZGAURD APPLIED TO BUTTOCK WOUNDS. WEEPING FROM SOME EDEMATOUS AREAS, ESPECIALLY FROM BACK OF LEGS AND BUTTOCKS AREA. FALL PRECAUTIONS IN PLACE. PROGRESSING SLOWLY TOWARD POC GOALS. WILL CONTINUE TO MONITOR FURTHER.
[2019-03-17 05:47] LABS: HEMATOCRIT 26.3 % (42.0-52.0); HEMOGLOBIN 8.7 gm/dL (14.0-18.0); MCH 26.2 pg (26.0-34.0); MCHC 33.1 g/dL (28.0-37.0); MCV 79.1 fL (80.0-100.0); RBC 3.32 mil/uL (4.50-6.00); RDW 18.5 % (10.5-14.5); WBC 11.2 thou/uL (4.0-11.0)
[2019-03-17 06:20] LABS: ALBUMIN 1.4 g/dL (3.4-5.0); CALCIUM 6.5 mg/dL (8.5-10.1); CREATININE 2.7 mg/dL (0.7-1.3); PHOSPHORUS 4.2 mg/dL (2.5-4.9); TOTAL BILIRUBIN 0.5 mg/dL (<0.1-1.0); TOTAL PROTEIN 5.2 g/dL (6.4-8.2)
[2019-03-17 06:30] LABS: POTASSIUM 2.9 mmol/L (3.5-5.1)
--- NOTE | 2019-03-17 11:18 | NUR ---
WOUND CARE FOLLOW UP; ROUNDING WITH LANA ANTIQUE FINISHER AND BECKY DESAI BSN. NO SIGNIFICANT CHANGES NOTED TODAY. BLACK STOOLS AND ESCORIATION NOTED. CONTINUE CURRENT POC DISCUSSED WITH RN
--- NOTE | 2019-03-17 11:49 | NUR ---
Nutrition: REC consider start TPN to meet needs. Pt without adequate nutrition x 5 days and remains on bipap. If able to tolerate fluid suggest Standard TPN to run at goal 75 mL/hr.
--- NOTE | 2019-03-17 16:51 | NUR ---
PT IS ALERT TO SELF. HAS GENERALIZED PAIN NOTED. PAIN MEDS GIVEN SEE MAR FOR TIME OF ADMINISTRATION PT IS ON BIPAP AT 90 PER CENT OXYGEN SATURATION IS 89 90 PERCENT. PT HAS REDENED AND COCCYX AREA SHEARING NOTED. BARRIER CREAM TO COCCYX. TURN Q 2 HOURS. ABDOMEN IS SOFT AND ROUND. BOWEL SOUNDS ACTIVE. SUPRAPUBIC CATHETER. SEDIMENT URINE YELLOW NOTED. IN ISOLATION FOR MRSA. WILL CONTINUE TO ASSES AND MONITOR PER NURSING
[2019-03-18] VITALS (14 sets, daily range): BP systolic 85–141; BP diastolic 37–82
[2019-03-18 05:14] LABS: ALBUMIN 1.4 g/dL (3.4-5.0); CALCIUM 7.6 mg/dL (8.5-10.1); CREATININE 2.6 mg/dL (0.7-1.3); PHOSPHORUS 4.3 mg/dL (2.5-4.9)
[2019-03-18 05:15] LABS: POTASSIUM 3.1 mmol/L (3.5-5.1)
--- NOTE | 2019-03-18 06:12 | NUR ---
Pt remains in a critical conditions. He is continue to be on BIPAP, not rajiv to be off. He is desat easily with any nursing cares. He is tachypnic. RR in 30's. O2 sat mid 90's. BP stable, continue to off levophed gtt. Edema of extremities remains the same. Good U/O with lasix IV. Turns q 2 hrs, excoriated area on buttock area looks worsen due to multiple liquid stools. Sites cleaned and applied Zgaurd as wound care instructions. Hypothermia last night, pedro robbygger applied. T 98.2 this am. Continue supportive cares.
--- NOTE | 2019-03-18 08:22 | NUR ---
PATIENT ALERT TO SELF THIS MORNING AND FOLLOWING COMMANDS. DENIES PAIN. CONTINUES TO BE VERY TACHYPNIC WITH LABORED BREATHING, ON BIPAP 85%. PATIENT LOOKS IF HE IS HAVING TO WORK HARD TO BREATH. DR MADRID AWARE, AND IS CONTA[place]ING [facility]. PATIENT HAS SIGNIFICANT EDEMA WORSE ON THE RIGHT, ESPECIALLY IN THE LOWER EXTRIMITY. CONTINUES TO HAVE ADEQUATE URINE OUTPUT, ON LASIX. REPLACING K+ AT THIS TIME. NO OTHER CONCERNS AT THIS TIME. WILL CONTINUW TO MONITOR AND CARE PER PLAN OF CARE.
[2019-03-18 08:33] LABS: BE(vivo) -0.3 mmol/L (-2 to +3); HCO3 23.5 mmol/L (22.0-26.0); PCO2 34.8 mmHg (35.0-45.0); PO2 61.2 mmHg (80.0-100.0); pH 7.447 (7.360-7.450); sO2 92.6 % (92.0-98.0)
--- NOTE | 2019-03-18 11:57 | NUR ---
WOUND CARE FOLLOW UP; ROUNDING TODAY WITH LANA TIRE BLADDER MAKER AND BECKY SECURITY ADVISOR ESCORIATION LOOKS BETTER TODAY. CONTINUE CURRENT POC
--- NOTE | 2019-03-18 15:09 | NUR ---
1230-ASSUMED CARE OF PT.--VW
--- NOTE | 2019-03-18 17:51 | NUR ---
1510-SPOKE W RE:CONT'D RESTLESSNESS,TACHYPNEA...ORDER NOTED.--VW
--- NOTE | 2019-03-18 17:52 | NUR ---
IN EARLIER.SPOKE W PT'S EX- & DTR VIA PHONE (BOTH DPOA'S)-PLAN IS TO MAKE MORE COMFORTABLE TONIGHT,MEET W ALL SAMIR AT 11AM TO DISCUSS W/DRAW OF BIPAP,PALLIATIVE CARE.MUCH SUPPORT TO FAMILY MEMBERS PRESENT,PT.--VW
--- NOTE | 2019-03-18 19:50 | NUR ---
Pt's ex- and youngest daughter visited. They are aware of family meeting with tomorrow. Spoke to his regarding of his current conditions. Goals is to keep him comfort tonight.
[2019-03-19] VITALS (29 sets, daily range): BP systolic 79–130; BP diastolic 38–68
--- NOTE | 2019-03-19 00:01 | NUR ---
PT'S CONDITIONS BECAME WORSEN. DIFFICULT TO OXYGINATED. O2 SAT 85% NOTED ON 90% OF FIO2. ORALLY SUCTIONING PT W/O ANY THING RETURNED. INCREASING FIO2 TO 100%. RT IS ASSITING PT WITH BIPAP ADJUSTMENT. NOTIFIED REGARDING OF ABOVE. NEW ORDER OBTAINED.
[2019-03-19 05:35] LABS: BE(vivo) -9.1 mmol/L (-2 to +3); PCO2 44.2 mmHg (35.0-45.0); PO2 95.9 mmHg (80.0-100.0)
[2019-03-19 05:36] LABS: pH 7.227 (7.360-7.450)
[2019-03-19 06:03] LABS: ABSOLUTE NEUTROPHILS 15.3 thou/uL (1.4-8.2); BASOPHILS 0.4 % (0.0-2.0); EOSINOPHILS 0.1 % (0.0-3.0); HEMATOCRIT 26.9 % (42.0-52.0); HEMOGLOBIN 8.4 gm/dL (14.0-18.0); LYMPHOCYTES 1.7 % (24.0-44.0); MCH 25.8 pg (26.0-34.0); MCHC 31.1 g/dL (28.0-37.0); MCV 82.8 fL (80.0-100.0); MONOCYTES 1.7 % (1.0-8.0); PLATELET COUNT 238 thou/uL (150-400); POLYS 96.1 % (36.0-66.0); RBC 3.25 mil/uL (4.50-6.00); RDW 19.9 % (10.5-14.5); WBC 15.9 thou/uL (4.0-11.0)
[2019-03-19 06:19] LABS: ALBUMIN 1.4 g/dL (3.4-5.0); CALCIUM 7.8 mg/dL (8.5-10.1); CREATININE 3.2 mg/dL (0.7-1.3); MAGNESIUM 1.8 mg/dL (1.8-2.4); PHOSPHORUS 6.6 mg/dL (2.5-4.9); POTASSIUM 5.4 mmol/L (3.5-5.1)
--- NOTE | 2019-03-19 07:35 | NUR ---
ASSUMED CARE OF PT AT 0100. PT ON BIPAP IN AVAPS MODE. O2 SAT AT 99-100% ON 100% FIO2. PT'S BREATHING IS LABORED, BUT IS IMPROVED FROM WHEN FIRST ASSESSED. ON LEVO GTT, TITRATED UP PRN. FAMILY WILL BE HERE AT 1100, PLAN IS TO WITHDRAW CARE. WILL CONTINUE TO MONITOR.
--- NOTE | 2019-03-19 13:17 | HC ---
[facility] [place] [address] CONSULTATION Name: STEVIEMARLEN Room #: 245-P [facility] IN .R.#: [id number] Admission: 03/12/19 ������������������ Attend Phys: Nely Rodrigues MD Discharge: ������������������ Date of : 52 Report #: [id number] THIS REPORT FOR: //name// CC: Daniel Rodrigues DATE OF SERVICE: 03/13/2019 HISTORY OF PRESENT ILLNESS: This 68-year-old with severe chronic medical problems, include history of syringomyelia and quadriparesis as well as multiple sclerosis. He is heavy and is nonambulatory. He has been able to mobilize with assistance and a scooter. He has had a previous left hip fracture treated surgically in the past. He has had a recent pneumonia and some problems with skin breakdown at the sacrum. Yesterday, I believe, he fell from his scooter and injured the right hip. Following this new injury, he had more hip pain and was brought to the Emergency Room. Here, x-rays reveal evidence of a right femoral neck fracture with displacement. I have had several lengthy discussions with the patient and now, further discussion with his family who have durable power of county attorney. I have noted that he does have obvious right hip discomfort, but he has other generalized areas of discomfort and is difficult to evaluate this objectively. He is quite heavy and difficult to move. It appears that he has an area of blistering over the right upper thigh and quite a bit of redness and skin breakdown in the sacral and buttock region. It is difficult to say how much of this is old and how much is new. He also has recent pneumonia and chronic urosepsis. All these problems combined with his obesity and very debilitated and weakened metabolic state presents significant problems with any possible surgery. Nevertheless, we have discussed the option of surgical treatment probably using a hemiarthroplasty approach. I have explained that he certainly will not be able to resume weightbearing or ambulation as he has been nonambulatory for quite some time. The hip may have issues with instability given his poor muscle tone and given the fact that he requires a marked assistance and lifting for transfers, which may place him at risk for dislocation. In addition, I am quite concerned with his pneumonia and his urosepsis and his areas of skin breakdown on the right hip and buttock region. This certainly places him at great risk for perioperative problems and wound infection. Given this, the patient and his family agree that the best approach is probably to avoid surgery at this time. 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 If he should have ongoing discomfort, then revision to hemiarthroplasty may be helpful with regard to hip pain, but probably will not help much with regard to function. I think the best approach is to try to improve his pneumonia and his areas of skin breakdown on the hip and buttock region. If these improve with an appropriate therapy and rehabilitation program, then we may reconsider the option of surgical management for the hip. The family is in favor of this conservative approach and would [facility] [address] [place] [address] CONSULTATION Name: MARLEN HUBBARD Room #: 245-P ADM IN M.R.#: [id number] Admission: 03/12/19 ������������������ Attend Phys: Nely Rodrigues MD Discharge: ������������������ Date of : 52 Report #: [id number] prefer to avoid surgery at this time. The patient has also discussed this at some length and seems to understand both the risks and benefits and prefers to avoid surgery at this point. Given this, we will cancel our plans for surgery today and continue with his more conservative medical management. ��������������������������������������������� <ELECTRONICALLY SIGNED> ���������������������������������������� By: Daniel Klein MD ��������������������������������������������� 03/19/19 1317 1627 2055 Daniel Klein MD /nt
--- NOTE | 2019-03-19 13:19 | NUR ---
PT DOSED WITH MORPHINE AND ATIVAN PRIOR TO BIPAP REMOVAL-SEE CHARTING. REMOVED FROM BIPAP AT 1310, EX , DAUGHTER AND NUMEROUS OTHER CLOSE FAMILY AT BEDSIDE.
--- NOTE | 2019-03-19 15:13 | NUR ---
DR. BENITEZ GAVE ORDERS FOR 2 RNS TO PRONOUNCE PATIENT.
--- NOTE | 2019-03-19 16:07 | NUR ---
PT PRONOUNCED AT [facility] ICU RM 245, ABSENTS OF HEART TONES (ONE FULL MIN) NO SPONTANEOUS BREATHING NO PUPIL REFLEX, ASYSTOLE IN 2 LEADS. PRONOUNCED BY 2 RNS 03/19/19 AT 1529.
--- NOTE | 2019-03-21 12:02 | HC ---
[facility] [place] [address] CONSULTATION Name: MARLEN HUBBARD Rusty Room #: 245-P [facility] IN ..#: [id number] Admission: 03/12/19 ������������������ Attend Phys: Nely Rodrigues MD Discharge: 03/19/19 ������������������ Date of : 52 Report #: [id number] THIS REPORT FOR: //name// CC: Daniel Rodrigues DATE OF SERVICE: 03/14/2019 REASON FOR CONSULTATION: Acute renal failure. HISTORY OF PRESENT ILLNESS: This unfortunate 68-year-old gentleman has a syringomyelia, multiple sclerosis and partial quadriparesis. He was dropped and broke his right hip. He stayed home for a couple of weeks, finally came to get it evaluated. He also has excoriations and wounds in the gluteal and perineal area. He was admitted. He had been hospitalized at this hospital with urinary sepsis related to a chronic indwelling suprapubic catheter 4 months ago. He was admitted at this time. He has also hypotension, elevating creatinine and acute metabolic acidosis. PAST MEDICAL HISTORY: As outlined above. He also has diabetes and hypertension. He has had a previous cholecystectomy as well. SOCIAL HISTORY: Lives at home with caregivers. FAMILY HISTORY: No renal disease. REVIEW OF SYSTEMS: The patient is a poor historian. At the current time, he is confused and seen in ICU. He is obviously in distress, not short winded, but he does have a lot of pain in his right hip. PHYSICAL EXAMINATION: GENERAL: This is a somewhat ill-appearing, pale gentleman. SKIN: Otherwise remarkable for breakdown in the perineal and gluteal areas. SKELETAL: Shows him to be able to move his extremities only very little bit. HEENT: Extraocular movements are full. Mucous membranes are dry. NECK: Supple. CHEST: Diminished breath sounds at the bases. HEART: Regular but distant. ABDOMEN: Soft and nontender and the suprapubic catheter is noted. EXTREMITIES: Show 1+ generalized edema. LABORATORY DATA: Hemoglobin is 11.7, white count 14.4, platelets 402. Sodium 138, potassium 5.2, chloride 101, bicarbonate 13, BUN 34, creatinine 2.1. ASSESSMENT: 1. Acute renal failure. Creatinine is up. He is acidotic. He is hypotensive, [address] [place] [address] CONSULTATION Name: MARLEN HUBBARD Room #: 245-P [facility] IN .R.#: [id number] Admission: 03/12/19 ������������������ Attend Phys: Nely Rodrigues MD Discharge: 03/19/19 ������������������ Date of : 52 Report #: [id number] almost certainly has urinary based sepsis. Appropriate antibiotics have been adjusted. He is in ICU. He is getting appropriate fluids and pressors. [place] is guarded. 2. Quadriparesis with syringomyelia and multiple sclerosis. 3. Right hip fracture. 4. History of diabetes. 5. History of hypertension. ��������������������������������������������� <ELECTRONICALLY SIGNED> ���������������������������������������� By: Pérez Steward MD ��������������������������������������������� 03/21/19 1202 1103 1224 Pérez Steward MD /nt
== END 2019-03-19 16:50 | DRG 871 ==
LOC: ER 14:55 → EROBS 18:16 → 4E 18:16 → ICU 03-14 09:06
PROVIDERS: Emergency Medicine; Internal Medicine; Internal Medicine Nephrology; Internal Medicine Pulmonary Disease; Pediatrics; ADMIT Internal Medicine
PROC: 02HV33Z Insertion of Infusion Device into Superior Vena Cava, Percutaneous Approach (ICD-10-PCS; principal; 2019-03-14)
PROC: B548ZZA Ultrasonography of Superior Vena Cava, Guidance (ICD-10-PCS; 2019-03-14)
PROC: B5181ZA Fluoroscopy of Superior Vena Cava using Low Osmolar Contrast, Guidance (ICD-10-PCS; 2019-03-14)
PROC: 03HY32Z Insertion of Monitoring Device into Upper Artery, Percutaneous Approach (ICD-10-PCS; 2019-03-14)
PROC: 4A133B1 Monitoring of Arterial Pressure, Peripheral, Percutaneous Approach (ICD-10-PCS; 2019-03-14)
PROC: 4A133J1 Monitoring of Arterial Pulse, Peripheral, Percutaneous Approach (ICD-10-PCS; 2019-03-14)
PROC: 5A09357 Assistance with Respiratory Ventilation, Less than 24 Consecutive Hours, Continuous Positive Airway Pressure (ICD-10-PCS; 2019-03-15)
PROC: 5A09457 Assistance with Respiratory Ventilation, 24-96 Consecutive Hours, Continuous Positive Airway Pressure (ICD-10-PCS; 2019-03-16)
DX: A41.9 Sepsis, unspecified organism (principal); J18.9 Pneumonia, unspecified organism; G82.50 Quadriplegia, unspecified; S72.001A Fracture of unspecified part of neck of right femur, initial encounter for closed fracture; J96.01 Acute respiratory failure with hypoxia; R65.21 Severe sepsis with septic shock; G95.0 Syringomyelia and syringobulbia; E44.0 Moderate protein-calorie malnutrition; N39.0 Urinary tract infection, site not specified; E87.2 Acidosis; N17.9 Acute kidney failure, unspecified; G93.40 Encephalopathy, unspecified; E11.9 Type 2 diabetes mellitus without complications; E78.5 Hyperlipidemia, unspecified; F32.9 Major depressive disorder, single episode, unspecified; I10 Essential (primary) hypertension; W18.30XA Fall on same level, unspecified, initial encounter; G35 Multiple sclerosis; E66.9 Obesity, unspecified; F41.9 Anxiety disorder, unspecified; E87.6 Hypokalemia; S30.810A Abrasion of lower back and pelvis, initial encounter; S30.811A Abrasion of abdominal wall, initial encounter; Z66 Do not resuscitate; X58.XXXA Exposure to other specified factors, initial encounter; L89.159 Pressure ulcer of sacral region, unspecified stage; B96.20 Unspecified Escherichia coli [E. coli] as the cause of diseases classified elsewhere; B96.5 Pseudomonas (aeruginosa) (mallei) (pseudomallei) as the cause of diseases classified elsewhere; Z51.5 Encounter for palliative care; Z74.01 Bed confinement status; Z99.3 Dependence on wheelchair; Z90.49 Acquired absence of other specified parts of digestive tract; Z68.30 Body mass index [BMI] 30.0-30.9, adult; Z79.899 Other long term (current) drug therapy; Z86.14 Personal history of Methicillin resistant Staphylococcus aureus infection; Z79.4 Long term (current) use of insulin; Y93.89 Activity, other specified; Y92.89 Other specified places as the place of occurrence of the external cause; Y99.8 Other external cause status
CPT/HCPCS: 10078; 10084; 50010